=== PATIENT | male | born 1950 | race Caucasian/White ===

== ENCOUNTER 2016-12-03 12:02 | Inpatient (IN) | payer OTHER ==
[~2016-12-03] VITALS: Ht 172.7 cm; Wt 117.5 kg
[2016-12-03] MEDS ORDERED: SODIUM CHLORIDE FLUSH 10ML SYR IVF ONE (12:30)
[2016-12-03] MEDS ORDERED: CEFTRIAXONE PMX 1GM/50ML 50 ML IVPB ONE (12:30)
[2016-12-03] MEDS ORDERED: AZITHROMYCIN 500 MG in SODIUM CHLORIDE 0.9% 250 ML IVPB ONE (13:00)
[2016-12-03] MEDS ORDERED: METH40TA3 PO (13:16)
[2016-12-03] MEDS ORDERED: CEFTRIAXONE PMX 1GM/50ML 50 ML ONE (14:05)
[2016-12-03 14:07] LABS: ASPARTATE AMINO TRANSFERASE 60 U/L (15-37); BLOOD UREA NITROGEN 13 mg/dL (7-18)
[2016-12-03 14:40] LABS: HEMATOCRIT 38.8 % (39.2-51.8); HEMOGLOBIN 12.7 g/dL (13.7-18.0); WHITE BLOOD COUNT 4.7 x10^3/uL (3.4-10)
[2016-12-03] MEDS ORDERED: SODIUM CHLORIDE FLUSH 10ML SYR IVF PRN (15:00)
[2016-12-03 16:14] VITALS: BP 128/82
[2016-12-03] MEDS ORDERED: VANCOMYCIN PER PHARMACY MC PRN (19:30)
[2016-12-03] MEDS ORDERED: POLYETHYLENE GLYCOL 17 GM PACKET PO PRN (19:30)
[2016-12-03] MEDS: FUROSEMIDE 20 MG/2 ML IV SCH (19:30)
[2016-12-03] MEDS ORDERED: VANCOMYCIN PMX 1GM/200ML 200 ML IV ONE (19:30)
[2016-12-03] MEDS ORDERED: MORPHINE SULFATE 4 MG/ML, 1ML IVPush PRN (19:30)
[2016-12-03] MEDS ORDERED: BISACODYL 10 MG SUPP PR PRN (19:30)
[2016-12-03] MEDS ORDERED: ENALAPRILAT 1.25 MG/ML, 2ML IVPush PRN (19:30)
[2016-12-03] MEDS ORDERED: ONDANSETRON 2MG/ML, 2ML IVPush PRN (19:30)
[2016-12-03] MEDS ORDERED: hydrALAzine 20 MG/ML, 1ML IVPush PRN (19:30)
[2016-12-03 19:58] VITALS: BP 125/73
[2016-12-03] MEDS ORDERED: METHADONE 40 MG TABLET.SOL PO SCH (20:00)
[2016-12-03] MEDS ORDERED: PHARMACOKINETIC CONSULTATION MC ONE (20:30)
[2016-12-03] MEDS ORDERED: PHARMACOKINETIC MONITORING MC PRN (20:30)
[2016-12-03] MEDS ORDERED: METHADONE MC SCH (21:00)
[2016-12-03] MEDS: METHADONE 40 MG TABLET.SOL PO SCH (21:45)
[2016-12-03] MEDS: ENOXAPARIN 40 MG/0.4 ML SQ SCH (21:45)
[2016-12-03] MEDS: PIPERACILLIN/TAZO/PMX 3.375GM 50 ML IV SCH (21:45)
[2016-12-03] MEDS: VANCOMYCIN 1,700 MG in SODIUM CHLORIDE 0.9% 250 ML IV SCH (22:35)
[2016-12-04] MEDS: DIPHENHYDRAMINE 50 MG/ML, 1ML IVPush PRN ×2 (00:33→20:59)
[2016-12-04] MEDS: PIPERACILLIN/TAZO/PMX 3.375GM 50 ML IV SCH ×4 (01:59→20:59)
[2016-12-04 04:05] VITALS: BP 150/80
[2016-12-04 05:36] LABS: HEMATOCRIT 36.7 % (39.2-51.8); HEMOGLOBIN 12.3 g/dL (13.7-18.0); WHITE BLOOD COUNT 3.9 x10^3/uL (3.4-10)
[2016-12-04 05:50] LABS: ASPARTATE AMINO TRANSFERASE 62 U/L (15-37); BLOOD UREA NITROGEN 10 mg/dL (7-18)
[2016-12-04 05:56] LABS: DIFF TOTAL CELLS COUNTED 100 CELL DIFF
[2016-12-04 05:59] LABS: VERIFY COUNTS? YES
[2016-12-04] MEDS: FUROSEMIDE 20 MG/2 ML IV SCH (06:27)
[2016-12-04 07:10] VITALS: BP 142/89
[2016-12-04] MEDS ORDERED: METHADONE 40 MG TABLET.SOL PO SCH (09:00)
[2016-12-04] MEDS: SENNA/DOCUSATE TABLET PO SCH (09:00)
[2016-12-04] MEDS: METHADONE 40 MG TABLET.SOL PO SCH (10:07)
[2016-12-04] MEDS: VANCOMYCIN 1,700 MG in SODIUM CHLORIDE 0.9% 250 ML IV SCH (12:12)
[2016-12-04 13:42] VITALS: BP 124/74
[2016-12-04 18:49] VITALS: BP 105/65
[2016-12-04] MEDS: ENOXAPARIN 40 MG/0.4 ML SQ SCH (21:00)
[2016-12-04] MEDS ORDERED: TEMAZEPAM 15 MG CAPSULE PO PRN (23:00)
[2016-12-05] MEDS: VANCOMYCIN 1,700 MG in SODIUM CHLORIDE 0.9% 250 ML IV SCH ×3 (00:12→22:26)
[2016-12-05 02:00] VITALS: BP 120/80
[2016-12-05] MEDS: PIPERACILLIN/TAZO/PMX 3.375GM 50 ML IV SCH ×4 (03:14→21:26)
[2016-12-05 05:44] LABS: BLOOD UREA NITROGEN 12 mg/dL (7-18)
[2016-12-05 07:20] VITALS: BP 111/75
[2016-12-05] MEDS: METHADONE 40 MG TABLET.SOL PO SCH (09:00)
[2016-12-05] MEDS: FUROSEMIDE 20 MG/2 ML IV SCH (09:30)
[2016-12-05] MEDS: SENNA/DOCUSATE TABLET PO SCH (09:30)
[2016-12-05] MEDS: DIPHENHYDRAMINE 50 MG/ML, 1ML IVPush PRN ×2 (09:31→20:25)
[2016-12-05 12:50] VITALS: BP 114/77
[2016-12-05] MEDS: OXYcodone IR 5MG TABLET PO PRN ×2 (15:28→20:32)
[2016-12-05] MEDS ORDERED: FUROSEMIDE 20 MG/2 ML IV ONE (19:00)
[2016-12-05 20:00] VITALS: BP 118/78
[2016-12-05] MEDS: ENOXAPARIN 40 MG/0.4 ML SQ SCH (22:24)
[2016-12-06 01:55] VITALS: BP 118/78
[2016-12-06 01:59] VITALS: BP 125/80
[2016-12-06] MEDS: OXYcodone IR 5MG TABLET PO PRN ×3 (03:25→22:11)
[2016-12-06] MEDS: PIPERACILLIN/TAZO/PMX 3.375GM 50 ML IV SCH ×4 (03:25→22:01)
[2016-12-06 05:13] LABS: BLOOD UREA NITROGEN 13 mg/dL (7-18)
[2016-12-06 07:32] VITALS: BP 107/68
[2016-12-06] MEDS: METHADONE 40 MG TABLET.SOL PO SCH (08:15)
[2016-12-06] MEDS: SENNA/DOCUSATE TABLET PO SCH (08:16)
[2016-12-06] MEDS: FUROSEMIDE 20 MG/2 ML IV SCH (08:16)
[2016-12-06 15:21] VITALS: BP 115/73
[2016-12-06] MEDS: VANCOMYCIN 1,700 MG in SODIUM CHLORIDE 0.9% 250 ML IV SCH (17:47)
[2016-12-06] MEDS: DIPHENHYDRAMINE 50 MG/ML, 1ML IVPush PRN (17:52)
[2016-12-06 20:00] VITALS: BP 124/78
[2016-12-06] MEDS: ENOXAPARIN 40 MG/0.4 ML SQ SCH (22:01)
[2016-12-07 01:28] VITALS: BP 113/79
[2016-12-07] MEDS: DIPHENHYDRAMINE 50 MG/ML, 1ML IVPush PRN ×3 (01:40→22:08)
[2016-12-07] MEDS: PIPERACILLIN/TAZO/PMX 3.375GM 50 ML IV SCH ×4 (04:16→20:52)
[2016-12-07 05:16] LABS: BLOOD UREA NITROGEN 15 mg/dL (7-18)
[2016-12-07] MEDS: OXYcodone IR 5MG TABLET PO PRN ×3 (05:44→20:52)
[2016-12-07 08:43] VITALS: BP 115/76
[2016-12-07] MEDS: SENNA/DOCUSATE TABLET PO SCH (09:00)
[2016-12-07] MEDS: METHADONE 40 MG TABLET.SOL PO SCH (09:41)
[2016-12-07] MEDS: FUROSEMIDE 20 MG/2 ML IV SCH (10:35)
[2016-12-07] MEDS: VANCOMYCIN 1,700 MG in SODIUM CHLORIDE 0.9% 250 ML IV SCH (12:52)
[2016-12-07 14:04] VITALS: BP 115/74
[2016-12-07 20:42] VITALS: BP 115/74
[2016-12-07] MEDS: ENOXAPARIN 40 MG/0.4 ML SQ SCH (20:52)
[2016-12-08 02:30] VITALS: BP 118/70
[2016-12-08] MEDS: OXYcodone IR 5MG TABLET PO PRN ×4 (04:15→22:54)
[2016-12-08] MEDS: DIPHENHYDRAMINE 50 MG/ML, 1ML IVPush PRN ×2 (04:15→22:54)
[2016-12-08] MEDS: PIPERACILLIN/TAZO/PMX 3.375GM 50 ML IV SCH ×3 (04:16→19:52)
[2016-12-08 05:44] LABS: BLOOD UREA NITROGEN 12 mg/dL (7-18)
[2016-12-08] MEDS: VANCOMYCIN 1,700 MG in SODIUM CHLORIDE 0.9% 250 ML IV SCH (08:19)
[2016-12-08] MEDS: METHADONE 40 MG TABLET.SOL PO SCH (08:20)
[2016-12-08] MEDS: SENNA/DOCUSATE TABLET PO SCH (08:20)
[2016-12-08] MEDS: FUROSEMIDE 20 MG/2 ML IV SCH (08:20)
[2016-12-08 08:21] VITALS: BP 122/75
[2016-12-08 13:52] VITALS: BP 110/70
[2016-12-08] MEDS ORDERED: AMOX1TAB64 PO (14:21)
[2016-12-08] MEDS ORDERED: POLY17PO5 PO (14:21)
[2016-12-08] MEDS ORDERED: FURO-93 PO (14:21)
[2016-12-08 20:02] VITALS: BP 128/83
[2016-12-08] MEDS: ENOXAPARIN 40 MG/0.4 ML SQ SCH (22:54)
[2016-12-09] MEDS: PIPERACILLIN/TAZO/PMX 3.375GM 50 ML IV SCH ×3 (00:32→13:07)
[2016-12-09 00:36] VITALS: BP 116/73
[2016-12-09 01:56] VITALS: BP 114/72
[2016-12-09] MEDS: VANCOMYCIN 1,700 MG in SODIUM CHLORIDE 0.9% 250 ML IV SCH (02:05)
[2016-12-09] MEDS: SENNA/DOCUSATE TABLET PO SCH (07:43)
[2016-12-09] MEDS: METHADONE 40 MG TABLET.SOL PO SCH (07:43)
[2016-12-09] MEDS: FUROSEMIDE 20 MG/2 ML IV SCH (07:43)
[2016-12-09] MEDS: DIPHENHYDRAMINE 50 MG/ML, 1ML IVPush PRN (07:55)
[2016-12-09 07:58] VITALS: BP 120/74
[2016-12-09 13:38] VITALS: BP 104/51
[2016-12-09] MEDS: OXYcodone IR 5MG TABLET PO PRN (14:08)
[2016-12-09] MEDS ORDERED: VANCOMYCIN 1,500 MG in SODIUM CHLORIDE 0.9% 250 ML IV SCH (21:00)
== END 2016-12-09 16:22 | disposition home health service (06) | DRG 602 ==
LOC: ED 14:56 → EDIP 14:57 → ED 15:07 → 3NE 16:02
PROVIDERS: ADMIT Internal Medicine; ATTEND Internal Medicine
DX: L03.115 Cellulitis of right lower limb (principal); J18.0 Bronchopneumonia, unspecified organism; E44.0 Moderate protein-calorie malnutrition; J96.11 Chronic respiratory failure with hypoxia; I50.9 Heart failure, unspecified; J44.0 Chronic obstructive pulmonary disease with (acute) lower respiratory infection; K76.0 Fatty (change of) liver, not elsewhere classified; E66.01 Morbid (severe) obesity due to excess calories; L03.116 Cellulitis of left lower limb; D64.9 Anemia, unspecified; B19.20 Unspecified viral hepatitis C without hepatic coma; G89.29 Other chronic pain; K80.20 Calculus of gallbladder without cholecystitis without obstruction; Z87.891 Personal history of nicotine dependence; Z95.0 Presence of cardiac pacemaker; Z99.81 Dependence on supplemental oxygen; Z68.39 Body mass index [BMI] 39.0-39.9, adult
CPT/HCPCS: 36415; 71020; 76700; 80048; 80053; 80061; 80202; 81003; 83036; 83605; 83735; 83880; 84439; 84443; 85025; 85610; 85730; 87040; 87070; 87077; 87186; 87205; 93005; 93306; 93922; 93970; 96365; 96368; J0456; J0696; J1650; J2543; J3370; 29580-50; J1200; J1940; J7050

== ENCOUNTER 2017-04-01 22:14 | Emergency (ER) | payer OTHER ==
[~2017-04-01] VITALS: Ht 172.7 cm; Wt 126.1 kg
[~2017-04-01 22:14] MED LIST: AMOX1TAB64 PO; FURO-93 PO; METH40TA3 PO; POLY17PO5 PO
[2017-04-01] MEDS ORDERED: HYDROcodone/APAP 5/325 TABLET ONE (23:26)
[2017-04-01] MEDS ORDERED: AMPICILLIN/SULBACTAM 3 GM in SODIUM CHLORIDE 0.9% 100 ML IV ONE (23:30)
[2017-04-01] MEDS ORDERED: SODIUM CHLORIDE FLUSH 10ML SYR IVF ONE (23:30)
[2017-04-01] MEDS ORDERED: HYDROcodone/APAP 5/325 TABLET PO ONE (23:30)
[2017-04-01 23:47] LABS: BASOPHILS # (AUTO) 0.04 x10^3/uL (0-0.1); BASOPHILS % (AUTO) 1 % (0-1); EOSINOPHILS # (AUTO) 0.17 x10^3/uL (0-0.4); EOSINOPHILS % (AUTO) 3 % (1-7); LYMPHOCYTES # (AUTO) 1.19 x10^3/uL (1-3.4); LYMPHOCYTES % (AUTO) 18 % (22-44); MD NO; MEAN CORPUSCULAR HGB CONC 33.4 g/dL (33.2-36.2); MEAN CORPUSCULAR VOLUME 92.8 fL (81-97); MEAN PLATELET VOLUME 7.9 fL (7.4-10.4); MONOCYTES % (AUTO) 18 % (2-9); NEUTROPHILS # (AUTO) 4.12 x10^3/uL (1.8-6.8); NEUTROPHILS % (AUTO) 61 % (42-75); PLATELET COUNT 164 x10^3/uL (130-400); RED BLOOD COUNT 4.05 x10^6/uL (4.38-5.82)
[2017-04-02] LABS: ALANINE AMINOTRANSFERASE 70 U/L (12-78); ALBUMIN 3.3 g/dL (3.4-5.0); ANION GAP 9 mmol/L (5-15); CALCIUM 8.3 mg/dL (8.5-10.1); CHLORIDE 100 mmol/L (98-107)
[2017-04-02 00:08] LABS: ALKALINE PHOSPHATASE 94 U/L (45-117); BILIRUBIN,TOTAL 0.6 mg/dL (0.2-1.0); CREATININE 0.99 mg/dL (0.7-1.3); TOTAL PROTEIN 7.4 g/dL (6.4-8.2)
[2017-04-02] MEDS ORDERED: KETOROLAC 30 MG/1 ML ONE (00:37)
[2017-04-02] MEDS ORDERED: KETOROLAC 30 MG/1 ML IVPush ONE (01:00)
[2017-04-02 01:04] VITALS: BP 135/61
== END 2017-04-02 01:10 | disposition left against medical advice (07) ==
LOC: ED 23:41
DX: L97.929 Non-pressure chronic ulcer of unspecified part of left lower leg with unspecified severity (principal); L03.116 Cellulitis of left lower limb; J44.9 Chronic obstructive pulmonary disease, unspecified; Z87.891 Personal history of nicotine dependence; Z95.0 Presence of cardiac pacemaker
CPT/HCPCS: 36415; 80053; 83605; 84145; 85025; 87040; 93971; 96365; 99285; J0295

== ENCOUNTER 2017-06-08 20:15 | Inpatient (IN) | payer OTHER ==
[~2017-06-08] VITALS: Ht 177.8 cm; Wt 123.0 kg
[2017-06-08] MEDS ORDERED: SODIUM CHLORIDE FLUSH 10ML SYR IVF ONE (20:30)
[2017-06-08] MEDS ORDERED: CEFAZOLIN PMX 1GM/50ML 50 ML IV ONE (20:30)
[2017-06-08] MEDS ORDERED: CEFAZOLIN PMX 1GM/50ML 50 ML ONE (21:18)
[2017-06-08 21:26] LABS: BASOPHILS # (AUTO) 0.02 x10^3/uL (0-0.1); BASOPHILS % (AUTO) 0 % (0-1); EOSINOPHILS # (AUTO) 0.05 x10^3/uL (0-0.4); EOSINOPHILS % (AUTO) 1 % (1-7); LYMPHOCYTES # (AUTO) 0.77 x10^3/uL (1-3.4); LYMPHOCYTES % (AUTO) 17 % (22-44); MD NO; MEAN CORPUSCULAR HEMOGLOBIN 32.3 pg (27.5-34.5); MEAN CORPUSCULAR HGB CONC 33.6 g/dL (33.2-36.2); MEAN CORPUSCULAR VOLUME 96.1 fL (81-97); MEAN PLATELET VOLUME 8.1 fL (7.4-10.4); MONOCYTES # (AUTO) 0.61 x10^3/uL (0.2-0.8); MONOCYTES % (AUTO) 13 % (2-9); NEUTROPHILS # (AUTO) 3.07 x10^3/uL (1.8-6.8); NEUTROPHILS % (AUTO) 68 % (42-75); PLATELET COUNT 112 x10^3/uL (130-400); RED BLOOD COUNT 4.38 x10^6/uL (4.38-5.82); RED CELL DISTRIBUTION WIDTH 17.2 % (9.4-14.8)
[2017-06-08 21:35] LABS: INTERNATIONAL NORMALIZED RATIO 1.14 (0.93-1.1); PROTHROMBIN TIME 11.7 Seconds (9.6-11.5)
[2017-06-08 21:38] LABS: ALANINE AMINOTRANSFERASE 119 U/L (12-78); ALBUMIN 3.6 g/dL (3.4-5.0); ANION GAP 9 mmol/L (5-15); CALCIUM 8.6 mg/dL (8.5-10.1); CHLORIDE 96 mmol/L (98-107); CREATININE 0.84 mg/dL (0.7-1.3)
[2017-06-08 21:43] LABS: ALKALINE PHOSPHATASE 97 U/L (45-117); TOTAL PROTEIN 8.1 g/dL (6.4-8.2); TROPONIN I < 0.015 ng/mL (0.000-0.045)
[2017-06-08] MEDS ORDERED: FUROSEMIDE 40 MG/4 ML IV ONE (23:00)
[2017-06-08] MEDS ORDERED: FUROSEMIDE 40 MG/4 ML ONE (23:24)
[2017-06-09] MEDS ORDERED: ACETAMINOPHEN 325 MG TABLET PO PRN
[2017-06-09] MEDS ORDERED: hydrALAzine 20 MG/ML, 1ML IVPush PRN
[2017-06-09] MEDS ORDERED: DOCUSATE 100 MG CAPSULE PO PRN
[2017-06-09 00:45] VITALS: BP 153/88
[2017-06-09] MEDS: ENOXAPARIN 40 MG/0.4 ML SQ SCH ×2 (01:07→23:08)
[2017-06-09] MEDS ORDERED: OMNIPAQUE 350 MG/ML, 100ML BOTTLE ONE (03:21)
[2017-06-09 03:41] VITALS: BP 148/88
[2017-06-09] MEDS ORDERED: CEFAZOLIN 1,000 MG IVPB SCH (04:30)
[2017-06-09] MEDS ORDERED: CEFAZOLIN 1,000 MG IM SCH (04:30)
[2017-06-09] MEDS: CEFAZOLIN PMX 1GM/50ML 50 ML IV SCH ×3 (06:15→23:07)
[2017-06-09 07:05] VITALS: BP 149/84
[2017-06-09] MEDS ORDERED: METHADONE INTENSOL 10 MG/ML ORAL CONC PO SCH ×2 (09:00→10:30)
[2017-06-09 13:12] VITALS: BP 156/94
[2017-06-09] MEDS: ONDANSETRON 4 MG TABLET PO PRN (13:58)
[2017-06-09] MEDS ORDERED: PROMETHAZINE 25 MG/ML, 1ML IM PRN (14:00)
[2017-06-09] MEDS ORDERED: D5%-LACTATED RINGERS 1,000 ML IV SCH (17:00)
[2017-06-09 19:39] VITALS: BP 133/89
[2017-06-09] MEDS: TEMAZEPAM 15 MG CAPSULE PO PRN (23:08)
[2017-06-10 01:36] VITALS: BP 155/93
[2017-06-10] MEDS: CEFAZOLIN PMX 1GM/50ML 50 ML IV SCH ×3 (06:38→22:02)
[2017-06-10 07:15] VITALS: BP 134/81
[2017-06-10 07:20] LABS: ALANINE AMINOTRANSFERASE 82 U/L (12-78); ALBUMIN 3.3 g/dL (3.4-5.0); ANION GAP 5 mmol/L (5-15); CALCIUM 8.1 mg/dL (8.5-10.1); CHLORIDE 96 mmol/L (98-107); CREATININE 0.99 mg/dL (0.7-1.3)
[2017-06-10 07:22] LABS: ALKALINE PHOSPHATASE 85 U/L (45-117); BILIRUBIN,TOTAL 1.3 mg/dL (0.2-1.0); TOTAL PROTEIN 7.5 g/dL (6.4-8.2)
[2017-06-10] MEDS: METHADONE 10 MG TABLET PO SCH (09:00)
[2017-06-10] MEDS ORDERED: SINCALIDE (KINEVAC) 5 MCG ONE (14:42)
[2017-06-10] MEDS: ONDANSETRON 4 MG TABLET PO PRN (15:36)
[2017-06-10] MEDS ORDERED: CEFOTETAN PMX 2GM/50ML 50 ML IVPB ONE (17:00)
[2017-06-10 19:32] VITALS: BP 115/74
[2017-06-10] MEDS: TEMAZEPAM 15 MG CAPSULE PO PRN (22:02)
[2017-06-10] MEDS: ENOXAPARIN 40 MG/0.4 ML SQ SCH (23:28)
[2017-06-11 01:09] VITALS: BP 149/88
[2017-06-11] MEDS: CEFAZOLIN PMX 1GM/50ML 50 ML IV SCH ×3 (05:48→22:19)
[2017-06-11] MEDS ORDERED: MIDAZOLAM 1 MG/ML, 2ML ONE (06:44)
[2017-06-11 06:45] VITALS: BP 146/86
[2017-06-11] MEDS ORDERED: FENTANYL PF 250 MCG/5ML ONE (06:45)
[2017-06-11] MEDS ORDERED: PROPOFOL 10 MG/ML, 20ML ONE (06:46)
[2017-06-11] MEDS ORDERED: ROCURONIUM 10MG/ML,5ML ONE (06:47)
[2017-06-11] MEDS ORDERED: NEOSTIGMINE 1 MG/ML, 10ML ONE (06:49)
[2017-06-11] MEDS ORDERED: BUPIVACAINE/PF 0.5% ONE (07:05)
[2017-06-11] MEDS ORDERED: GLYCOPYRROLATE 0.2MG/1ML, 5ML ONE (07:23)
[2017-06-11] MEDS ORDERED: PHENYLEPHRINE 10 MG/ML ONE (07:23)
[2017-06-11] MEDS ORDERED: CEFOTETAN PMX 2GM/50ML 50 ML IVPB ONE (07:23)
[2017-06-11] MEDS ORDERED: PROMETHAZINE 25 MG/ML, 1ML IV PRN (07:30)
[2017-06-11] MEDS ORDERED: hydrALAzine 20 MG/ML, 1ML IV PRN (07:30)
[2017-06-11] MEDS ORDERED: HYDROmorphone 1 MG/ML, 1ML IV PRN (07:30)
[2017-06-11] MEDS ORDERED: ONDANSETRON 2MG/ML, 2ML IVPush PRN (07:30)
[2017-06-11] MEDS ORDERED: morphine SULFATE 10 MG/ML, 1ML IV PRN (07:30)
[2017-06-11] MEDS ORDERED: OXYcodone 5 MG/5 ML ORAL.SOL UDC PO PRN (07:30)
[2017-06-11] MEDS ORDERED: LABETALOL 5MG/ML, 20ML IV PRN (07:30)
[2017-06-11] MEDS ORDERED: PROMETHAZINE 12.5 MG SUPP PR PRN (07:30)
[2017-06-11] MEDS ORDERED: FENTANYL PF 100 MCG/2ML IV PRN (07:30)
[2017-06-11] MEDS ORDERED: BUPIVACAINE/PF 0.5% INJ ONE (07:53)
[2017-06-11] MEDS ORDERED: CEFOTETAN PMX 2GM/50ML 50 ML IV ONE (08:00)
[2017-06-11] MEDS ORDERED: MEPERIDINE/PF 25MG/0.5ML ONE (09:10)
[2017-06-11] MEDS: MEPERIDINE/PF 25MG/0.5ML IVPush PRN ×2 (09:12→09:27)
[2017-06-11] MEDS: METHADONE 10 MG TABLET PO SCH (10:14)
[2017-06-11] MEDS ORDERED: KETOROLAC 30 MG/1 ML IVPush PRN (12:00)
[2017-06-11 14:25] VITALS: BP 113/69
[2017-06-11 20:12] VITALS: BP 123/74
[2017-06-11] MEDS: TEMAZEPAM 15 MG CAPSULE PO PRN (22:19)
[2017-06-11] MEDS: ENOXAPARIN 40 MG/0.4 ML SQ SCH (23:41)
[2017-06-12 03:16] VITALS: BP 124/74
[2017-06-12] MEDS: CEFAZOLIN PMX 1GM/50ML 50 ML IV SCH ×2 (06:17→14:24)
[2017-06-12 08:15] VITALS: BP 128/80
[2017-06-12] MEDS: METHADONE 10 MG TABLET PO SCH (08:38)
[2017-06-12 08:46] LABS: MEAN CORPUSCULAR HEMOGLOBIN 31.9 pg (27.5-34.5); MEAN CORPUSCULAR HGB CONC 33.2 g/dL (33.2-36.2); MEAN PLATELET VOLUME 7.8 fL (7.4-10.4); PLATELET COUNT 91 x10^3/uL (130-400); RED BLOOD COUNT 4.12 x10^6/uL (4.38-5.82); RED CELL DISTRIBUTION WIDTH 17.8 % (9.4-14.8)
[2017-06-12 08:51] LABS: ALANINE AMINOTRANSFERASE 68 U/L (12-78); ALBUMIN 2.9 g/dL (3.4-5.0); ANION GAP 5 mmol/L (5-15); CALCIUM 7.9 mg/dL (8.5-10.1); CHLORIDE 98 mmol/L (98-107); CREATININE 0.91 mg/dL (0.7-1.3)
[2017-06-12 08:53] LABS: ALKALINE PHOSPHATASE 70 U/L (45-117); BILIRUBIN,TOTAL 1.2 mg/dL (0.2-1.0); TOTAL PROTEIN 6.8 g/dL (6.4-8.2)
[2017-06-12 09:41] LABS: BASOPHILS # (AUTO) 0.03 x10^3/uL (0-0.1); BASOPHILS % (AUTO) 1 % (0-1); EOSINOPHILS # (AUTO) 0.21 x10^3/uL (0-0.4); EOSINOPHILS % (AUTO) 5 % (1-7); LYMPHOCYTES # (AUTO) 0.84 x10^3/uL (1-3.4); LYMPHOCYTES % (AUTO) 19 % (22-44); MD SCAN; MONOCYTES # (AUTO) 0.66 x10^3/uL (0.2-0.8); MONOCYTES % (AUTO) 15 % (2-9); NEUTROPHILS # (AUTO) 2.68 x10^3/uL (1.8-6.8); NEUTROPHILS % (AUTO) 61 % (42-75)
[2017-06-12] MEDS ORDERED: POTASSIUM CHLORIDE 20 MEQ TAB.ER.PRT PO ONE (12:30)
[2017-06-12] MEDS ORDERED: ACET-1757 PO (12:36)
== END 2017-06-12 15:00 | disposition home health service (06) | DRG 418 ==
LOC: ED 22:40 → EDIP 23:40 → 4WST 06-09 00:12
PROVIDERS: ADMIT Hospitalist; ATTEND Hospitalist
PROC: 0FT44ZZ Resection of Gallbladder, Percutaneous Endoscopic Approach (ICD-10-PCS; principal; 2017-06-08)
DX: K80.66 Calculus of gallbladder and bile duct with acute and chronic cholecystitis without obstruction (principal); L03.115 Cellulitis of right lower limb; J96.10 Chronic respiratory failure, unspecified whether with hypoxia or hypercapnia; Z99.81 Dependence on supplemental oxygen; B19.10 Unspecified viral hepatitis B without hepatic coma; L03.116 Cellulitis of left lower limb; J98.11 Atelectasis; K76.0 Fatty (change of) liver, not elsewhere classified; B19.20 Unspecified viral hepatitis C without hepatic coma; E66.9 Obesity, unspecified; F11.90 Opioid use, unspecified, uncomplicated; I51.7 Cardiomegaly; I87.8 Other specified disorders of veins; J44.9 Chronic obstructive pulmonary disease, unspecified; G89.29 Other chronic pain; M54.5 Low back pain; Z68.38 Body mass index [BMI] 38.0-38.9, adult; Z87.891 Personal history of nicotine dependence; Z90.49 Acquired absence of other specified parts of digestive tract; Z95.0 Presence of cardiac pacemaker
CPT/HCPCS: 36415; 71045; 71275; 74018; 76705; 78227; 80053; 83690; 83880; 84484; 85025; 85379; 85610; 85730; 86704; 86706; 86708; 86803; 87040; 87340; 88304; 93005; 93970; 96365; 96375; J0690; J1650; J1940; J2175; J2250; J2704; J2710; J3010; J3490; Q0162; Q9967; A9537; C9898; J2370; J2805; S0074

== ENCOUNTER 2017-06-24 16:24 | Inpatient (IN) | payer OTHER ==
[~2017-06-24] VITALS: Ht 175.3 cm; Wt 122.6 kg
[~2017-06-24 16:24] MED LIST changes: +ACET-1757 PO
[2017-06-24] MEDS: ALBUTEROL/IPRATROPIUM 2.5MG/0.5MG, 3 ML NPPB SCH ×3 (17:12→22:23)
[2017-06-24] MEDS ORDERED: ALBUTEROL/IPRATROPIUM 2.5MG/0.5MG, 3 ML ONE ×2 (17:12→17:20)
[2017-06-24 17:37] LABS: BASOPHILS # (AUTO) 0.02 x10^3/uL (0-0.1); BASOPHILS % (AUTO) 0 % (0-1); EOSINOPHILS # (AUTO) 0.26 x10^3/uL (0-0.4); EOSINOPHILS % (AUTO) 4 % (1-7); LYMPHOCYTES # (AUTO) 1.12 x10^3/uL (1-3.4); LYMPHOCYTES % (AUTO) 19 % (22-44); MD NO; MEAN CORPUSCULAR HEMOGLOBIN 32.6 pg (27.5-34.5); MEAN CORPUSCULAR HGB CONC 33.6 g/dL (33.2-36.2); MEAN CORPUSCULAR VOLUME 96.9 fL (81-97); MEAN PLATELET VOLUME 7.7 fL (7.4-10.4); MONOCYTES # (AUTO) 0.82 x10^3/uL (0.2-0.8); MONOCYTES % (AUTO) 14 % (2-9); NEUTROPHILS # (AUTO) 3.77 x10^3/uL (1.8-6.8); NEUTROPHILS % (AUTO) 63 % (42-75); PLATELET COUNT 191 x10^3/uL (130-400); RED BLOOD COUNT 4.14 x10^6/uL (4.38-5.82); RED CELL DISTRIBUTION WIDTH 17.2 % (9.4-14.8)
[2017-06-24 17:43] LABS: ALANINE AMINOTRANSFERASE 90 U/L (12-78); ALBUMIN 3.2 g/dL (3.4-5.0); ANION GAP 7 mmol/L (5-15); CALCIUM 8.1 mg/dL (8.5-10.1); CHLORIDE 102 mmol/L (98-107); CREATININE 0.86 mg/dL (0.7-1.3)
[2017-06-24 17:48] LABS: ALKALINE PHOSPHATASE 98 U/L (45-117); BILIRUBIN,TOTAL 0.8 mg/dL (0.2-1.0); TOTAL PROTEIN 7.3 g/dL (6.4-8.2); TROPONIN I < 0.015 ng/mL (0.000-0.045)
[2017-06-24] MEDS ORDERED: PIPERACILLIN/TAZO/PMX 3.375GM 50 ML IV ONE (18:00)
[2017-06-24] MEDS ORDERED: PIPERACILLIN/TAZO/PMX 3.375GM 50 ML ONE ×2 (18:13→18:33)
[2017-06-24] MEDS ORDERED: POLYETHYLENE GLYCOL 17 GM PACKET PO PRN (19:00)
[2017-06-24] MEDS ORDERED: ONDANSETRON 2MG/ML, 2ML IVPush PRN (19:00)
[2017-06-24] MEDS ORDERED: ONDANSETRON ODT 4 MG PO PRN (19:00)
[2017-06-24] MEDS ORDERED: LABETALOL 5MG/ML, 20ML IVPush PRN (19:00)
[2017-06-24] MEDS ORDERED: VANCOMYCIN PER PHARMACY MC PRN (19:00)
[2017-06-24 19:15] LABS: FREE T4 (FREE THYROXINE) 0.95 ng/dL (0.76-1.46)
[2017-06-24] MEDS ORDERED: PHARMACOKINETIC CONSULTATION MC ONE (20:00)
[2017-06-24] MEDS ORDERED: PHARMACOKINETIC MONITORING MC PRN (20:00)
[2017-06-24 20:45] VITALS: BP 136/70
[2017-06-24] MEDS: ACETAMINOPHEN 325 MG TABLET PO PRN (20:57)
[2017-06-24] MEDS: VANCOMYCIN 1,800 MG in SODIUM CHLORIDE 0.9% 250 ML IV SCH (20:57)
[2017-06-24] MEDS: GUAIFENESIN 200 MG TABLET PO SCH (20:57)
[2017-06-24] MEDS: ENOXAPARIN 40 MG/0.4 ML SQ SCH (21:11)
[2017-06-24 22:00] VITALS: BP 136/70
[2017-06-24] MEDS ORDERED: ALBUTEROL/IPRATROPIUM 2.5MG/0.5MG, 3 ML NPPB PRN (22:00)
[2017-06-25] MEDS: ALBUTEROL/IPRATROPIUM 2.5MG/0.5MG, 3 ML NPPB SCH ×5 (00:02→20:00)
[2017-06-25] MEDS: ACETAMINOPHEN 325 MG TABLET PO PRN ×2 (01:12→19:54)
[2017-06-25] MEDS: PIPERACILLIN/TAZO/PMX 3.375GM 50 ML IV SCH ×4 (01:12→19:54)
[2017-06-25 02:00] VITALS: BP 137/81
[2017-06-25 06:08] LABS: BASOPHILS # (AUTO) 0.04 x10^3/uL (0-0.1); BASOPHILS % (AUTO) 1 % (0-1); EOSINOPHILS # (AUTO) 0.17 x10^3/uL (0-0.4); EOSINOPHILS % (AUTO) 3 % (1-7); LYMPHOCYTES # (AUTO) 0.82 x10^3/uL (1-3.4); LYMPHOCYTES % (AUTO) 16 % (22-44); MD NO; MEAN CORPUSCULAR HEMOGLOBIN 32.8 pg (27.5-34.5); MEAN CORPUSCULAR HGB CONC 33.8 g/dL (33.2-36.2); MEAN CORPUSCULAR VOLUME 96.9 fL (81-97); MEAN PLATELET VOLUME 7.7 fL (7.4-10.4); MONOCYTES # (AUTO) 0.77 x10^3/uL (0.2-0.8); MONOCYTES % (AUTO) 15 % (2-9); NEUTROPHILS # (AUTO) 3.33 x10^3/uL (1.8-6.8); NEUTROPHILS % (AUTO) 65 % (42-75); PLATELET COUNT 157 x10^3/uL (130-400); RED BLOOD COUNT 3.76 x10^6/uL (4.38-5.82); RED CELL DISTRIBUTION WIDTH 17.7 % (9.4-14.8)
[2017-06-25 06:22] LABS: ALBUMIN 2.9 g/dL (3.4-5.0); ANION GAP 5 mmol/L (5-15); CALCIUM 7.9 mg/dL (8.5-10.1); CHLORIDE 103 mmol/L (98-107)
[2017-06-25 06:32] LABS: ALANINE AMINOTRANSFERASE 76 U/L (12-78); ALKALINE PHOSPHATASE 83 U/L (45-117); BILIRUBIN,TOTAL 0.9 mg/dL (0.2-1.0); CHOLESTEROL, TOTAL 118 mg/dL (140-239); CREATININE 0.85 mg/dL (0.7-1.3); HDL CHOL % 33 % (26-37); HDL CHOLESTEROL (DIRECT) 39 mg/dL (40-60); LDL CHOLESTEROL,CALCULATED 58 mg/dL (54-169); LDL/HDL RATIO 1.5 (0.5-3.0); TOTAL PROTEIN 6.7 g/dL (6.4-8.2); TRIGLYCERIDES 107 mg/dL (50-200); VLDL CHOLESTEROL 21 mg/dL (0-25)
[2017-06-25] MEDS: GUAIFENESIN 200 MG TABLET PO SCH ×4 (06:33→20:59)
[2017-06-25] MEDS ORDERED: MAGNESIUM SULFATE PMX 2GM/50ML 50 ML IV ONE (07:30)
[2017-06-25 08:30] VITALS: BP 147/80
[2017-06-25 08:40] VITALS: BP 147/80
[2017-06-25] MEDS: SENNA/DOCUSATE TABLET PO SCH (09:00)
[2017-06-25] MEDS: FUROSEMIDE 20 MG/2 ML IV SCH (09:17)
[2017-06-25] MEDS: LEVOTHYROXINE 25 MCG TABLET PO SCH (09:18)
[2017-06-25] MEDS: METHADONE INTENSOL 10 MG/ML ORAL CONC PO SCH (10:14)
[2017-06-25 14:52] VITALS: BP 146/77
[2017-06-25] MEDS: VANCOMYCIN 1,800 MG in SODIUM CHLORIDE 0.9% 250 ML IV SCH (16:13)
[2017-06-25 20:00] VITALS: BP 129/73
[2017-06-25] MEDS: ENOXAPARIN 40 MG/0.4 ML SQ SCH (20:59)
[2017-06-25] MEDS: TEMAZEPAM 15 MG CAPSULE PO PRN (21:32)
[2017-06-26 02:00] VITALS: BP 123/71
[2017-06-26] MEDS: PIPERACILLIN/TAZO/PMX 3.375GM 50 ML IV SCH ×2 (02:22→08:16)
[2017-06-26 04:52] LABS: MEAN CORPUSCULAR HEMOGLOBIN 32.5 pg (27.5-34.5); MEAN CORPUSCULAR HGB CONC 33.4 g/dL (33.2-36.2); MEAN CORPUSCULAR VOLUME 97.5 fL (81-97); PLATELET COUNT 180 x10^3/uL (130-400); RED BLOOD COUNT 4.04 x10^6/uL (4.38-5.82); RED CELL DISTRIBUTION WIDTH 17.1 % (9.4-14.8)
[2017-06-26 04:59] LABS: ANION GAP 6 mmol/L (5-15); CALCIUM 8.5 mg/dL (8.5-10.1); CHLORIDE 104 mmol/L (98-107); CREATININE 0.84 mg/dL (0.7-1.3)
[2017-06-26 05:41] LABS: BASOPHILS # (AUTO) 0.02 x10^3/uL (0-0.1); BASOPHILS % (AUTO) 0 % (0-1); EOSINOPHILS # (AUTO) 0.03 x10^3/uL (0-0.4); EOSINOPHILS % (AUTO) 0 % (1-7); LYMPHOCYTES # (AUTO) 0.77 x10^3/uL (1-3.4); LYMPHOCYTES % (AUTO) 10 % (22-44); MD SCAN; MONOCYTES # (AUTO) 1.07 x10^3/uL (0.2-0.8); MONOCYTES % (AUTO) 13 % (2-9); NEUTROPHILS # (AUTO) 6.09 x10^3/uL (1.8-6.8); NEUTROPHILS % (AUTO) 76 % (42-75)
[2017-06-26] MEDS: LEVOTHYROXINE 25 MCG TABLET PO SCH (06:16)
[2017-06-26] MEDS: GUAIFENESIN 200 MG TABLET PO SCH ×4 (06:16→20:19)
[2017-06-26] MEDS: ALBUTEROL/IPRATROPIUM 2.5MG/0.5MG, 3 ML NPPB SCH ×5 (07:30→22:55)
[2017-06-26] MEDS: FUROSEMIDE 20 MG/2 ML IV SCH (08:16)
[2017-06-26] MEDS: SENNA/DOCUSATE TABLET PO SCH (08:17)
[2017-06-26] MEDS: METHADONE INTENSOL 10 MG/ML ORAL CONC PO SCH (08:17)
[2017-06-26 08:18] VITALS: BP 138/79
[2017-06-26] MEDS: VANCOMYCIN 1,800 MG in SODIUM CHLORIDE 0.9% 250 ML IV SCH (09:31)
[2017-06-26] MEDS: NEUTRA PHOS K 250 MG TABLET PO SCH ×3 (11:37→20:19)
[2017-06-26] MEDS ORDERED: CEFTRIAXONE PMX 2GM/50ML 50 ML IV SCH (13:00)
[2017-06-26] MEDS ORDERED: CEFTRIAXONE 2 GM in DEXTROSE 5% 50 ML IV SCH (14:00)
[2017-06-26 14:30] VITALS: BP 146/75
[2017-06-26 18:32] VITALS: BP 124/74
[2017-06-26] MEDS: ENOXAPARIN 40 MG/0.4 ML SQ SCH (20:19)
[2017-06-26] MEDS: DOXYCYCLINE 100MG TABLET PO SCH (20:19)
[2017-06-26] MEDS: TEMAZEPAM 15 MG CAPSULE PO PRN (20:27)
[2017-06-27 00:19] VITALS: BP 129/70
[2017-06-27 02:10] LABS: BASOPHILS # (AUTO) 0.02 x10^3/uL (0-0.1); BASOPHILS % (AUTO) 0 % (0-1); EOSINOPHILS # (AUTO) 0.04 x10^3/uL (0-0.4); EOSINOPHILS % (AUTO) 1 % (1-7); LYMPHOCYTES # (AUTO) 1.08 x10^3/uL (1-3.4); LYMPHOCYTES % (AUTO) 14 % (22-44); MD NO; MEAN CORPUSCULAR HEMOGLOBIN 31.8 pg (27.5-34.5); MEAN CORPUSCULAR VOLUME 96.5 fL (81-97); MEAN PLATELET VOLUME 7.8 fL (7.4-10.4); MONOCYTES # (AUTO) 1.21 x10^3/uL (0.2-0.8); MONOCYTES % (AUTO) 16 % (2-9); NEUTROPHILS # (AUTO) 5.45 x10^3/uL (1.8-6.8); NEUTROPHILS % (AUTO) 70 % (42-75); PLATELET COUNT 188 x10^3/uL (130-400); RED BLOOD COUNT 3.93 x10^6/uL (4.38-5.82); RED CELL DISTRIBUTION WIDTH 17.3 % (9.4-14.8)
[2017-06-27 02:20] LABS: ANION GAP 5 mmol/L (5-15); CALCIUM 8.6 mg/dL (8.5-10.1); CHLORIDE 106 mmol/L (98-107); CREATININE 0.91 mg/dL (0.7-1.3)
[2017-06-27] MEDS: VANCOMYCIN 1,800 MG in SODIUM CHLORIDE 0.9% 250 ML IV SCH (02:30)
[2017-06-27] MEDS: GUAIFENESIN 200 MG TABLET PO SCH ×2 (05:43→12:26)
[2017-06-27] MEDS: LEVOTHYROXINE 25 MCG TABLET PO SCH (05:45)
[2017-06-27 06:02] VITALS: BP 134/76
[2017-06-27] MEDS: ALBUTEROL/IPRATROPIUM 2.5MG/0.5MG, 3 ML NPPB SCH ×2 (07:40→11:50)
[2017-06-27] MEDS: DOXYCYCLINE 100MG TABLET PO SCH (08:41)
[2017-06-27] MEDS: SENNA/DOCUSATE TABLET PO SCH (08:41)
[2017-06-27] MEDS: NEUTRA PHOS K 250 MG TABLET PO SCH (08:41)
[2017-06-27] MEDS: FUROSEMIDE 20 MG/2 ML IV SCH ×2 (08:42→09:00)
[2017-06-27] MEDS: METHADONE INTENSOL 10 MG/ML ORAL CONC PO SCH (08:42)
[2017-06-27] MEDS ORDERED: LEVOFLOXACIN 750 MG TABLET PO SCH (10:30)
[2017-06-27] MEDS ORDERED: DOXY100T PO (12:09)
[2017-06-27] MEDS ORDERED: CEFD300C37 PO (12:09)
== END 2017-06-27 12:39 | disposition home or self-care (01) | DRG 177 ==
LOC: ED 18:27 → EDIP 18:51 → 3NE 19:42
PROVIDERS: ADMIT Internal Medicine; ATTEND Internal Medicine
DX: J15.6 Pneumonia due to other Gram-negative bacteria (principal); J96.01 Acute respiratory failure with hypoxia; E44.0 Moderate protein-calorie malnutrition; F11.20 Opioid dependence, uncomplicated; J44.0 Chronic obstructive pulmonary disease with (acute) lower respiratory infection; J44.1 Chronic obstructive pulmonary disease with (acute) exacerbation; D64.9 Anemia, unspecified; E66.9 Obesity, unspecified; G89.29 Other chronic pain; B19.20 Unspecified viral hepatitis C without hepatic coma; R00.1 Bradycardia, unspecified; R74.0 Nonspecific elevation of levels of transaminase and lactic acid dehydrogenase [LDH]; K76.0 Fatty (change of) liver, not elsewhere classified; Z99.81 Dependence on supplemental oxygen; Z68.39 Body mass index [BMI] 39.0-39.9, adult; Z87.891 Personal history of nicotine dependence; Z95.0 Presence of cardiac pacemaker; Z90.49 Acquired absence of other specified parts of digestive tract
CPT/HCPCS: 36415; 71045; 80048; 80053; 80061; 80202; 82040; 83605; 83690; 83735; 83880; 84100; 84145; 84439; 84443; 84484; 85025; 87040; 87070; 87077; 87186; 87205; 93005; 93308; 93321; 93325; 93922; 94640; 99285; J0696; J1650; J2543; J3370; J7620; J1940; J3475; J7050; J7512

== ENCOUNTER 2018-02-01 19:17 | Emergency (ER) | payer MEDICARE, OTHER ==
[~2018-02-01] VITALS: Ht 177.8 cm; Wt 110.3 kg
[~2018-02-01 19:17] MED LIST changes: +ALBU18HF INH; +AZIT250T PO; +CEFD300C37 PO; +DOXY100T PO; +PRED10TA PO; +TIOT18CA INH
[2018-02-01 19:23] VITALS: BP 166/90
[2018-02-01] MEDS ORDERED: IBUP-1623 PO (19:44)
[2018-02-01] MEDS ORDERED: OXYcodone/APAP 5/325MG TABLET PO ONE (20:00)
[2018-02-01] MEDS ORDERED: KETOROLAC 30 MG/1 ML IM ONE (20:00)
[2018-02-01] MEDS ORDERED: DIAZEPAM 5 MG TABLET PO ONE (20:00)
[2018-02-01] MEDS ORDERED: KETOROLAC 30 MG/1 ML ONE (20:00)
[2018-02-01] MEDS ORDERED: DIAZEPAM 5 MG TABLET ONE (20:01)
[2018-02-01] MEDS ORDERED: OXYcodone/APAP 5/325MG TABLET ONE (20:01)
== END 2018-02-01 20:39 | disposition home or self-care (01) ==
LOC: ED 20:05
DX: S39.012A Strain of muscle, fascia and tendon of lower back, initial encounter (principal); M46.1 Sacroiliitis, not elsewhere classified; M43.06 Spondylolysis, lumbar region; J44.9 Chronic obstructive pulmonary disease, unspecified; X58.XXXA Exposure to other specified factors, initial encounter; Y93.89 Activity, other specified; Y92.89 Other specified places as the place of occurrence of the external cause; Y99.8 Other external cause status
CPT/HCPCS: 72110; 93005; 96372; 99283; J1885

== ENCOUNTER 2018-07-19 12:04 | Emergency (ER) | payer MEDICARE ==
[~2018-07-19] VITALS: Ht 172.7 cm; Wt 104.8 kg
[~2018-07-19 12:04] MED LIST changes: +IBUP-1623 PO
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
[2018-07-19] MEDS ORDERED: ASPIRIN 81 MG TABLET CHEW PO ONE (12:30)
[2018-07-19 12:54] LABS: BASOPHILS # (AUTO) 0.04 x10^3/uL (0-0.1); BASOPHILS % (AUTO) 1 % (0-1); EOSINOPHILS # (AUTO) 0.25 x10^3/uL (0-0.4); EOSINOPHILS % (AUTO) 6 % (1-7); LYMPHOCYTES # (AUTO) 1.04 x10^3/uL (1-3.4); LYMPHOCYTES % (AUTO) 26 % (22-44); MD NO; MEAN CORPUSCULAR HEMOGLOBIN 33.3 pg (27.5-34.5); MEAN CORPUSCULAR HGB CONC 34.4 g/dL (33.2-36.2); MEAN CORPUSCULAR VOLUME 96.8 fL (81-97); MEAN PLATELET VOLUME 7.9 fL (7.4-10.4); MONOCYTES # (AUTO) 0.44 x10^3/uL (0.2-0.8); MONOCYTES % (AUTO) 11 % (2-9); NEUTROPHILS % (AUTO) 57 % (42-75); PLATELET COUNT 151 x10^3/uL (130-400); RED BLOOD COUNT 4.88 x10^6/uL (4.38-5.82); RED CELL DISTRIBUTION WIDTH 14.9 % (9.4-14.8)
[2018-07-19 12:55] LABS: ALBUMIN 3.4 g/dL (3.4-5.0); ANION GAP 10 mmol/L (5-15); CALCIUM 8.3 mg/dL (8.5-10.1); CHLORIDE 108 mmol/L (98-107)
[2018-07-19 13:01] LABS: ALANINE AMINOTRANSFERASE 81 U/L (12-78); ALKALINE PHOSPHATASE 74 U/L (45-117); BILIRUBIN,TOTAL 0.6 mg/dL (0.2-1.0); CREATININE 1.02 mg/dL (0.7-1.3); TROPONIN I < 0.015 ng/mL (0.000-0.045)
[2018-07-19 14:11] VITALS: BP 129/75
== END 2018-07-19 14:13 | disposition home or self-care (01) ==
LOC: ED 14:07
DX: R53.1 Weakness (principal); R07.89 Other chest pain; J44.9 Chronic obstructive pulmonary disease, unspecified; Z90.89 Acquired absence of other organs; Z90.49 Acquired absence of other specified parts of digestive tract; Z95.0 Presence of cardiac pacemaker; Z87.891 Personal history of nicotine dependence
CPT/HCPCS: 36415; 71045; 80053; 83735; 83880; 84443; 84484; 85025; 93005; 99284

== ENCOUNTER 2018-09-19 07:06 | Inpatient (IN) | payer MEDICARE, MEDICAID ==
[~2018-09-19] VITALS: Ht 172.7 cm; Wt 106.0 kg
--- NOTE | 2018-09-19 07:21 | NUR ---
ER MD IN TO EVAL PT. PT PLACED TO NIBP, CARD MONITOR, CONT PULSE OX. PT STATES PAIN 7/10 IN CHEST
[2018-09-19] MEDS ORDERED: MORPHINE SULFATE 4 MG/ML, 1ML ONE (07:28)
[2018-09-19] MEDS ORDERED: ONDANSETRON 2MG/ML, 2ML IVPush ONE (07:30)
[2018-09-19] MEDS ORDERED: MORPHINE SULFATE 4 MG/ML, 1ML IVPush PRN (07:30)
[2018-09-19] MEDS ORDERED: SODIUM CHLORIDE FLUSH 10ML SYR IVF ONE (07:30)
[2018-09-19] MEDS ORDERED: ONDANSETRON 2MG/ML, 2ML ONE (07:32)
[2018-09-19 07:43] LABS: MEAN CORPUSCULAR HEMOGLOBIN 31.6 pg (27.5-34.5); MEAN CORPUSCULAR HGB CONC 33.1 g/dL (33.2-36.2); MEAN CORPUSCULAR VOLUME 95.4 fL (81-97); MEAN PLATELET VOLUME 7.5 fL (7.4-10.4); PLATELET COUNT 191 x10^3/uL (130-400); RED BLOOD COUNT 4.74 x10^6/uL (4.38-5.82); RED CELL DISTRIBUTION WIDTH 14.3 % (9.4-14.8)
[2018-09-19 07:47] LABS: ALANINE AMINOTRANSFERASE 96 U/L (12-78); ALBUMIN 3.8 g/dL (3.4-5.0); ANION GAP 7 mmol/L (5-15); CALCIUM 8.4 mg/dL (8.5-10.1); CHLORIDE 105 mmol/L (98-107); CREATININE 0.92 mg/dL (0.7-1.3)
[2018-09-19 07:52] LABS: ALKALINE PHOSPHATASE 89 U/L (45-117); BILIRUBIN,TOTAL 1.1 mg/dL (0.2-1.0); TOTAL PROTEIN 7.5 g/dL (6.4-8.2); TROPONIN I < 0.015 ng/mL (0.000-0.045)
[2018-09-19] MEDS ORDERED: MAALOX/HYOSCYAMINE/LIDOCAINE 45 ML BTL PO ONE (08:00)
[2018-09-19] MEDS ORDERED: NITROGLYCERIN SINGLE TAB 0.4 MG SL ONE (08:09)
[2018-09-19] MEDS ORDERED: MAALOX/HYOSCYAMINE/LIDOCAINE 45 ML BTL ONE (08:09)
[2018-09-19] MEDS ORDERED: OXYGEN NS (08:15)
--- NOTE | 2018-09-19 08:16 | NUR ---
Preceptor RN: Provided pt medication per EMAR. Pt appreciative. NADN. No needs expressed at this time. Pt resting on gurney with bedrail up x 1. Call light within reach. Pt remains connected to feather boner, NIBP cuff, and pulse ox. Pt is wearing 3 L oxygen via NC at 92% pulse ox. Pt states he wears oxygen 24/7 at home at 3 liters.
[2018-09-19 08:19] LABS: MD YES
[2018-09-19 08:20] LABS: BAND#(MANUAL) 0.07 x10^3/uL; BANDS%(MANUAL) 1 % (0-7); EOS#(MANUAL) 0.29 x10^3/uL (0.0-0.4); EOS% (MANUAL) 4 % (1-7); LYMPH#(MANUAL) 1.44 x10^3/uL (1-3.4); LYMPHS% (MANUAL) 20 % (22-44); MONOS#(MANUAL) 1.44 x10^3/uL (0.3-2.7); MONOS% (MANUAL) 20 % (2-9); SEG#(MANUAL) 3.96 x10^3/uL (1.8-6.8); SEGS% (MANUAL) 55 % (42-75)
[2018-09-19 08:21] LABS: <PLATELET ESTIMATE> ADEQUATE; <PLT MORPHOLOGY> NORMAL PLT MORPH; <RBC MORPHOLOGY> NORMAL
[2018-09-19] MEDS ORDERED: NITROGLYCERIN SINGLE TAB 0.4 MG SL PRN ×2 (08:30)
[2018-09-19] MEDS ORDERED: SODIUM CHLORIDE FLUSH 10ML SYR IVF PRN (08:30)
--- NOTE | 2018-09-19 08:55 | NUR ---
PT TO BE ADMITTED, ATTEMPTED TO CALL REPORT TO RECIEVING RN. THEY WILL CALL BACK
[2018-09-19] MEDS ORDERED: NITROGLYCERIN 0.4 MG BOTTLE (25 TABS) SL PRN (09:30)
[2018-09-19] MEDS ORDERED: MAALOX/HYOSCYAMINE/LIDOCAINE 45 ML BTL PO PRN (09:30)
--- NOTE | 2018-09-19 09:30 | NUR ---
Provided report to KAELYN Lozoya. All questions answered. Pt ready to transfer to floor from ED.
[2018-09-19 09:49] LABS: D-DIMER 0.72 ug/mlFEU (0.00-0.52); INTERNATIONAL NORMALIZED RATIO 0.95 (0.93-1.1)
[2018-09-19] MEDS ORDERED: ONDANSETRON 2MG/ML, 2ML IVPush PRN (10:00)
[2018-09-19] MEDS ORDERED: LABETALOL 5MG/ML, 20ML IVPush PRN (10:00)
[2018-09-19 10:10] LABS: TROPONIN I < 0.015 ng/mL (0.000-0.045)
[2018-09-19] MEDS: CALCIUM CARBONATE 500 MG TAB.CHEW PO SCH ×2 (10:44→20:32)
[2018-09-19] MEDS: HEPARIN 5,000 UNITS/ML, 1ML SQ SCH ×2 (10:44→17:44)
[2018-09-19] MEDS: SODIUM CHLORIDE 0.9% 1,000 ML IV SCH (10:44)
[2018-09-19] MEDS: morphine SULFATE 10 MG/ML, 1ML IVPush PRN ×2 (12:07→16:10)
[2018-09-19 12:29] VITALS: BP 119/76
[2018-09-19] MEDS ORDERED: OMEPRAZOLE 20 MG CAPSULE.DR ONE (12:53)
[2018-09-19] MEDS: OMEPRAZOLE 20 MG CAPSULE.DR PO SCH (12:55)
[2018-09-19] MEDS: MAALOX/HYOSCYAMINE/LIDOCAINE 45 ML BTL PO PRN (12:55)
[2018-09-19] MEDS ORDERED: ALBUTEROL SULFATE 2.5 MG/3 ML NPPB PRN (13:00)
[2018-09-19 15:51] LABS: TROPONIN I < 0.015 ng/mL (0.000-0.045)
[2018-09-19] MEDS ORDERED: OMNIPAQUE 350 MG/ML, 100ML BOTTLE ONE (17:41)
[2018-09-19] MEDS ORDERED: METOPROLOL TARTRATE 25 MG TABLET PO ONE (18:00)
[2018-09-19] MEDS ORDERED: BENZONATATE 100 MG CAPSULE ONE (18:11)
[2018-09-19] MEDS: BENZONATATE 100 MG CAPSULE PO SCH (18:14)
[2018-09-19] MEDS ORDERED: LORazepam 1MG TABLET PO PRN (19:00)
[2018-09-19 20:05] VITALS: BP 122/74
[2018-09-19] MEDS: THIAMINE 100MG TABLET PO SCH (20:32)
[2018-09-19] MEDS: FOLIC ACID 1 MG TABLET PO SCH (20:32)
[2018-09-19] MEDS: ATORVASTATIN 40 MG TABLET PO SCH (20:32)
[2018-09-19] MEDS: ACETAMINOPHEN 325 MG TABLET PO PRN (20:32)
[2018-09-19 22:16] LABS: TROPONIN I 0.076 ng/mL (0.000-0.045)
[2018-09-19 22:23] VITALS: BP 100/63
[2018-09-20] VITALS (7 sets, daily range): BP systolic 93–153; BP diastolic 61–83
[2018-09-20] MEDS: HEPARIN 5,000 UNITS/ML, 1ML SQ SCH ×3 (02:30→18:05)
[2018-09-20] MEDS: ASPIRIN 325 MG TABLET EC PO SCH (05:13)
[2018-09-20] MEDS: OMEPRAZOLE 20 MG CAPSULE.DR PO SCH ×2 (05:14→18:04)
[2018-09-20 05:54] LABS: BASOPHILS # (AUTO) 0.03 x10^3/uL (0-0.1); BASOPHILS % (AUTO) 1 % (0-1); EOSINOPHILS # (AUTO) 0.03 x10^3/uL (0-0.4); EOSINOPHILS % (AUTO) 1 % (1-7); LYMPHOCYTES # (AUTO) 0.28 x10^3/uL (1-3.4); LYMPHOCYTES % (AUTO) 7 % (22-44); MD NO; MEAN CORPUSCULAR HGB CONC 33.5 g/dL (33.2-36.2); MEAN CORPUSCULAR VOLUME 95.6 fL (81-97); MEAN PLATELET VOLUME 8.2 fL (7.4-10.4); MONOCYTES # (AUTO) 0.43 x10^3/uL (0.2-0.8); MONOCYTES % (AUTO) 10 % (2-9); NEUTROPHILS % (AUTO) 82 % (42-75); PLATELET COUNT 152 x10^3/uL (130-400); RED BLOOD COUNT 4.55 x10^6/uL (4.38-5.82); RED CELL DISTRIBUTION WIDTH 14.2 % (9.4-14.8)
[2018-09-20 06:09] LABS: CHLORIDE 97 mmol/L (98-107)
[2018-09-20 06:14] LABS: ALANINE AMINOTRANSFERASE 76 U/L (12-78); ALBUMIN 3.5 g/dL (3.4-5.0); ALKALINE PHOSPHATASE 80 U/L (45-117); ANION GAP 7 mmol/L (5-15); BILIRUBIN,TOTAL 1.8 mg/dL (0.2-1.0); CALCIUM 8.5 mg/dL (8.5-10.1)
[2018-09-20] MEDS: BENZONATATE 100 MG CAPSULE PO SCH ×3 (07:45→20:10)
[2018-09-20] MEDS: ACETAMINOPHEN 325 MG TABLET PO PRN ×2 (07:45→13:46)
[2018-09-20] MEDS: SODIUM CHLORIDE 0.9% 1,000 ML IV SCH (07:50)
[2018-09-20] MEDS ORDERED: SODIUM PHOSPHATE 10 MMOL in SODIUM CHLORIDE 0.9% 500 ML IV ONE (09:00)
[2018-09-20] MEDS: MAALOX/HYOSCYAMINE/LIDOCAINE 45 ML BTL PO PRN ×2 (09:05→22:21)
[2018-09-20] MEDS: METOPROLOL TARTRATE 25 MG TABLET PO SCH ×2 (09:15→18:05)
[2018-09-20 09:22] LABS: TROPONIN I 0.065 ng/mL (0.000-0.045)
[2018-09-20] MEDS ORDERED: OMNIPAQUE 350 MG/ML, 100ML BOTTLE ONE (10:04)
[2018-09-20] MEDS: FOLIC ACID 1 MG TABLET PO SCH (10:43)
[2018-09-20] MEDS: CALCIUM CARBONATE 500 MG TAB.CHEW PO SCH ×2 (10:43→20:10)
[2018-09-20] MEDS: THIAMINE 100MG TABLET PO SCH (10:44)
[2018-09-20] MEDS: MULTIVITAMINS/MINERALS TABLET PO SCH (10:44)
[2018-09-20 13:37] LABS: MICROSCOPIC NOT IND
[2018-09-20] MEDS: LORazepam 0.5MG TABLET PO PRN (13:43)
[2018-09-20 13:52] LABS: CULTURE INDICATED? NO
[2018-09-20 16:22] LABS: CLOSTRIDIUM DIFFICILE ANTIGEN NEGATIVE; CLOSTRIDIUM DIFFICILE TOXIN NEGATIVE (Negative)
[2018-09-20] MEDS: LORazepam 1MG TABLET PO PRN (18:10)
[2018-09-20] MEDS ORDERED: CEFTRIAXONE PMX 1GM/50ML 50 ML IV SCH (19:00)
[2018-09-20] MEDS: DOXYCYCLINE 100 MG in DEXTROSE 5% 250 ML IV SCH (20:10)
[2018-09-20] MEDS: ATORVASTATIN 40 MG TABLET PO SCH (20:10)
[2018-09-21] VITALS (9 sets, daily range): BP systolic 86–151; BP diastolic 53–99
[2018-09-21] MEDS: HEPARIN 5,000 UNITS/ML, 1ML SQ SCH ×3 (02:57→19:50)
[2018-09-21] MEDS: ASPIRIN 325 MG TABLET EC PO SCH (04:14)
[2018-09-21] MEDS: OMEPRAZOLE 20 MG CAPSULE.DR PO SCH ×2 (04:14→16:35)
[2018-09-21] MEDS: LORazepam 1MG TABLET PO PRN ×2 (04:15→16:33)
[2018-09-21 05:37] LABS: ALBUMIN 3.3 g/dL (3.4-5.0); ANION GAP 6 mmol/L (5-15); CALCIUM 8.2 mg/dL (8.5-10.1); CHLORIDE 100 mmol/L (98-107)
[2018-09-21 05:41] LABS: ALANINE AMINOTRANSFERASE 119 U/L (12-78); ALKALINE PHOSPHATASE 87 U/L (45-117); BILIRUBIN,TOTAL 1.5 mg/dL (0.2-1.0); CREATININE 1.25 mg/dL (0.7-1.3); TOTAL PROTEIN 6.6 g/dL (6.4-8.2)
[2018-09-21] MEDS: METOPROLOL TARTRATE 25 MG TABLET PO SCH ×2 (06:02→17:05)
[2018-09-21] MEDS ORDERED: ACETAMINOPHEN 650 MG SUPP PR PRN (07:00)
[2018-09-21] MEDS ORDERED: AMPICILLIN/SULBACTAM 1,500 MG in SODIUM CHLORIDE 0.9% 50 ML IV SCH (07:00)
[2018-09-21] MEDS ORDERED: ZOSYN PER PHARMACY MC PRN (08:00)
[2018-09-21] MEDS ORDERED: VANCOMYCIN PER PHARMACY MC PRN (08:00)
[2018-09-21] MEDS ORDERED: POTASSIUM PHOSPHATE 44 MEQ in SODIUM CHLORIDE 0.9% 500 ML IV ONE (08:00)
[2018-09-21] MEDS ORDERED: ALBUTEROL/IPRATROPIUM 2.5MG/0.5MG, 3 ML HHN SCH (08:00)
[2018-09-21] MEDS: DOXYCYCLINE 100 MG in DEXTROSE 5% 250 ML IV SCH ×2 (08:15→19:50)
[2018-09-21] MEDS ORDERED: PHARMACOKINETIC MONITORING MC PRN (08:30)
[2018-09-21] MEDS: CALCIUM CARBONATE 500 MG TAB.CHEW PO SCH ×2 (09:00→20:10)
[2018-09-21] MEDS ORDERED: LORazepam 2 MG/ML, 1ML ONE (09:09)
[2018-09-21] MEDS: FOLIC ACID 1 MG TABLET PO SCH (10:52)
[2018-09-21] MEDS: THIAMINE 100MG TABLET PO SCH (10:52)
[2018-09-21] MEDS: BENZONATATE 100 MG CAPSULE PO SCH ×3 (10:52→20:10)
[2018-09-21] MEDS: MULTIVITAMINS/MINERALS TABLET PO SCH (10:52)
[2018-09-21] MEDS: GUAIFENESIN 200 MG TABLET PO SCH ×3 (10:57→20:10)
[2018-09-21] MEDS: PIPERACILLIN/TAZO/PMX 3.375GM 50 ML IV SCH ×3 (11:12→23:06)
--- NOTE | 2018-09-21 11:27 | NUR ---
REC PUREE/NTL; swallow precaution sheet posted at bedside Addendum: 09/21/18 at [address] Amended: Links added.
[2018-09-21] MEDS: VANCOMYCIN 2,000 MG in SODIUM CHLORIDE 0.9% 500 ML IV SCH (12:07)
[2018-09-21] MEDS ORDERED: POTASSIUM CHLORIDE 20 MEQ, MAGNESIUM SULFATE 1 GM, THIAMINE 200 MG, FOLIC ACID 1 MG, MV... IV SCH (16:30)
[2018-09-21] MEDS: morphine SULFATE 10 MG/ML, 1ML IVPush PRN (23:05)
[2018-09-22] VITALS (8 sets, daily range): BP systolic 86–132; BP diastolic 40–72
[2018-09-22] MEDS: HEPARIN 5,000 UNITS/ML, 1ML SQ SCH ×3 (04:50→20:32)
[2018-09-22] MEDS: GUAIFENESIN 200 MG TABLET PO SCH ×4 (04:50→20:32)
[2018-09-22] MEDS: ASPIRIN 81 MG TABLET EC PO SCH (04:51)
[2018-09-22] MEDS: METOPROLOL TARTRATE 25 MG TABLET PO SCH ×2 (04:51→17:55)
[2018-09-22] MEDS: PIPERACILLIN/TAZO/PMX 3.375GM 50 ML IV SCH ×3 (04:57→17:53)
[2018-09-22 05:10] LABS: BASOPHILS # (AUTO) 0.04 x10^3/uL (0-0.1); BASOPHILS % (AUTO) 1 % (0-1); EOSINOPHILS # (AUTO) 0.17 x10^3/uL (0-0.4); EOSINOPHILS % (AUTO) 4 % (1-7); LYMPHOCYTES # (AUTO) 0.59 x10^3/uL (1-3.4); LYMPHOCYTES % (AUTO) 13 % (22-44); MD NO; MEAN CORPUSCULAR HEMOGLOBIN 31.5 pg (27.5-34.5); MEAN CORPUSCULAR HGB CONC 32.7 g/dL (33.2-36.2); MEAN CORPUSCULAR VOLUME 96.3 fL (81-97); MEAN PLATELET VOLUME 8.4 fL (7.4-10.4); MONOCYTES # (AUTO) 0.33 x10^3/uL (0.2-0.8); MONOCYTES % (AUTO) 7 % (2-9); NEUTROPHILS % (AUTO) 76 % (42-75); PLATELET COUNT 159 x10^3/uL (130-400); RED BLOOD COUNT 4.09 x10^6/uL (4.38-5.82)
[2018-09-22 05:25] LABS: ALBUMIN 2.7 g/dL (3.4-5.0); ANION GAP 6 mmol/L (5-15); CALCIUM 7.6 mg/dL (8.5-10.1); CHLORIDE 105 mmol/L (98-107)
[2018-09-22 05:29] LABS: ALANINE AMINOTRANSFERASE 112 U/L (12-78); ALKALINE PHOSPHATASE 79 U/L (45-117); BILIRUBIN,TOTAL 1.6 mg/dL (0.2-1.0); CREATININE 1.27 mg/dL (0.7-1.3); TOTAL PROTEIN 6.1 g/dL (6.4-8.2)
[2018-09-22] MEDS: OMEPRAZOLE 20 MG CAPSULE.DR PO SCH ×2 (05:34→17:53)
[2018-09-22] MEDS ORDERED: DEXTROSE 50%, 50ML VIAL IVPush ONE (08:30)
[2018-09-22] MEDS ORDERED: INSULIN REGULAR 100 UNITS/ML, 3ML VIAL IVPush ONE (08:30)
[2018-09-22] MEDS ORDERED: SODIUM POLYSTYRENE SULFONATE ORAL SUSP PO ONE (08:30)
[2018-09-22] MEDS: DOXYCYCLINE 100 MG in DEXTROSE 5% 250 ML IV SCH ×2 (08:31→20:31)
[2018-09-22] MEDS: SODIUM CHLORIDE 0.9% 1,000 ML IV SCH ×2 (08:31→21:50)
[2018-09-22] MEDS: TAMSULOSIN 0.4 MG CAP.ER.24H PO SCH (08:42)
[2018-09-22] MEDS: BENZONATATE 100 MG CAPSULE PO SCH ×3 (08:42→20:32)
[2018-09-22] MEDS: CALCIUM CARBONATE 500 MG TAB.CHEW PO SCH ×2 (08:42→20:32)
[2018-09-22] MEDS: LORazepam 0.5MG TABLET PO PRN ×3 (09:02→22:17)
[2018-09-22] MEDS: VANCOMYCIN 2,000 MG in SODIUM CHLORIDE 0.9% 500 ML IV SCH (12:16)
[2018-09-22 12:33] LABS: ANION GAP 2 mmol/L (5-15); CALCIUM 7.8 mg/dL (8.5-10.1); CHLORIDE 107 mmol/L (98-107)
[2018-09-22 12:34] LABS: CREATININE 1.24 mg/dL (0.7-1.3)
[2018-09-22] MEDS ORDERED: MORPHINE SULFATE 4 MG/ML, 1ML ONE (14:23)
[2018-09-22] MEDS ORDERED: MORPHINE SULFATE 4 MG/ML, 1ML IVPush ONE (14:30)
[2018-09-22 15:03] LABS: TROPONIN I 0.048 ng/mL (0.000-0.045)
[2018-09-22] MEDS: ACETAMINOPHEN 325 MG TABLET PO PRN (22:17)
[2018-09-23] MEDS: PIPERACILLIN/TAZO/PMX 3.375GM 50 ML IV SCH ×4 (00:53→17:39)
[2018-09-23 02:14] VITALS: BP 102/64
[2018-09-23 05:58] LABS: BASOPHILS # (AUTO) 0.02 x10^3/uL (0-0.1); BASOPHILS % (AUTO) 0 % (0-1); EOSINOPHILS # (AUTO) 0.17 x10^3/uL (0-0.4); EOSINOPHILS % (AUTO) 4 % (1-7); LYMPHOCYTES # (AUTO) 0.58 x10^3/uL (1-3.4); LYMPHOCYTES % (AUTO) 12 % (22-44); MD NO; MEAN CORPUSCULAR HEMOGLOBIN 32.4 pg (27.5-34.5); MEAN CORPUSCULAR HGB CONC 33.2 g/dL (33.2-36.2); MEAN CORPUSCULAR VOLUME 97.7 fL (81-97); MEAN PLATELET VOLUME 8.6 fL (7.4-10.4); MONOCYTES # (AUTO) 0.54 x10^3/uL (0.2-0.8); MONOCYTES % (AUTO) 12 % (2-9); NEUTROPHILS % (AUTO) 72 % (42-75); PLATELET COUNT 149 x10^3/uL (130-400); RED BLOOD COUNT 3.85 x10^6/uL (4.38-5.82); RED CELL DISTRIBUTION WIDTH 14.9 % (9.4-14.8)
[2018-09-23 06:12] LABS: ALBUMIN 2.4 g/dL (3.4-5.0); ANION GAP 5 mmol/L (5-15); CALCIUM 7.5 mg/dL (8.5-10.1); CHLORIDE 108 mmol/L (98-107)
[2018-09-23 06:17] LABS: ALANINE AMINOTRANSFERASE 80 U/L (12-78); ALKALINE PHOSPHATASE 67 U/L (45-117); BILIRUBIN,TOTAL 1.1 mg/dL (0.2-1.0); CREATININE 0.86 mg/dL (0.7-1.3); TOTAL PROTEIN 5.2 g/dL (6.4-8.2)
[2018-09-23] MEDS: ASPIRIN 81 MG TABLET EC PO SCH (06:17)
[2018-09-23] MEDS: HEPARIN 5,000 UNITS/ML, 1ML SQ SCH (06:17)
[2018-09-23] MEDS: GUAIFENESIN 200 MG TABLET PO SCH ×4 (06:18→22:06)
[2018-09-23] MEDS: METOPROLOL TARTRATE 25 MG TABLET PO SCH (06:18)
[2018-09-23] MEDS: OMEPRAZOLE 20 MG CAPSULE.DR PO SCH ×2 (06:19→17:11)
[2018-09-23 08:38] VITALS: BP 76/49
[2018-09-23] MEDS ORDERED: DOXYCYCLINE 100MG TABLET PO SCH (09:00)
[2018-09-23] MEDS ORDERED: AMOXICILLIN/CLAV 875-125MG TABLET PO SCH (09:00)
[2018-09-23] MEDS ORDERED: SODIUM CHLORIDE 0.9% 1,000ML IVBOLUS ONE (09:00)
[2018-09-23] MEDS ORDERED: METOPROLOL TARTRATE 25 MG TABLET PO SCH (09:00)
[2018-09-23] MEDS ORDERED: ZOSYN PER PHARMACY MC PRN (09:30)
[2018-09-23] MEDS ORDERED: VANCOMYCIN PER PHARMACY MC PRN (09:30)
[2018-09-23] MEDS: DOXYCYCLINE 100 MG in DEXTROSE 5% 250 ML IV SCH ×2 (09:54→22:16)
[2018-09-23] MEDS: ENOXAPARIN 40 MG/0.4 ML SQ SCH (09:55)
[2018-09-23] MEDS: BENZONATATE 100 MG CAPSULE PO SCH ×3 (11:29→22:06)
[2018-09-23] MEDS: TAMSULOSIN 0.4 MG CAP.ER.24H PO SCH (11:29)
[2018-09-23] MEDS: CALCIUM CARBONATE 500 MG TAB.CHEW PO SCH ×2 (11:31→22:06)
[2018-09-23] MEDS: VANCOMYCIN 2,000 MG in SODIUM CHLORIDE 0.9% 500 ML IV SCH (11:58)
[2018-09-23] MEDS: SODIUM CHLORIDE 0.9% 1,000 ML IV SCH (13:54)
[2018-09-23 14:00] VITALS: BP 91/60
[2018-09-23] MEDS: ACETAMINOPHEN 325 MG TABLET PO PRN (15:11)
[2018-09-23 20:26] VITALS: BP 76/45
[2018-09-23] MEDS ORDERED: SODIUM CHLORIDE 0.9%, 500ML IVBOLUS ONE (21:30)
[2018-09-23] MEDS: LORazepam 0.5MG TABLET PO PRN (23:40)
[2018-09-24] MEDS: PIPERACILLIN/TAZO/PMX 3.375GM 50 ML IV SCH ×2 (01:23→07:43)
[2018-09-24] MEDS: ACETAMINOPHEN 325 MG TABLET PO PRN (02:13)
[2018-09-24 02:35] VITALS: BP 110/72
[2018-09-24] MEDS: LORazepam 0.5MG TABLET PO PRN (03:27)
[2018-09-24] MEDS: SODIUM CHLORIDE 0.9% 1,000 ML IV SCH ×2 (05:38→21:16)
[2018-09-24] MEDS: VANCOMYCIN 2,000 MG in SODIUM CHLORIDE 0.9% 500 ML IV SCH ×2 (05:47→23:38)
[2018-09-24] MEDS: GUAIFENESIN 200 MG TABLET PO SCH ×4 (05:48→21:18)
[2018-09-24] MEDS: OMEPRAZOLE 20 MG CAPSULE.DR PO SCH ×2 (05:48→15:07)
[2018-09-24] MEDS: ASPIRIN 81 MG TABLET EC PO SCH (05:48)
[2018-09-24] MEDS: CALCIUM CARBONATE 500 MG TAB.CHEW PO SCH ×2 (07:43→21:18)
[2018-09-24] MEDS: TAMSULOSIN 0.4 MG CAP.ER.24H PO SCH (07:43)
[2018-09-24] MEDS: BENZONATATE 100 MG CAPSULE PO SCH ×3 (07:43→21:18)
[2018-09-24 09:09] VITALS: BP 103/86
[2018-09-24] MEDS: AMPICILLIN/SULBACTAM 3 GM in SODIUM CHLORIDE 0.9% 100 ML IV SCH ×3 (09:19→20:31)
[2018-09-24] MEDS: ENOXAPARIN 40 MG/0.4 ML SQ SCH (11:09)
[2018-09-24] MEDS: DOXYCYCLINE 100 MG in DEXTROSE 5% 250 ML IV SCH (11:09)
--- NOTE | 2018-09-24 12:27 | NUR ---
REC SAMMIEE/THIN; ORANGE SHEET WITH DIET RECOMMENDATION AND SWALLOW STRATEGIES POSTED AT BEDSIDE. Addendum: 09/24/18 at 1227 by Shruti CASTRO Amended: Links added.
[2018-09-24 14:00] VITALS: BP 127/83
[2018-09-24 21:00] VITALS: BP 146/88
[2018-09-24] MEDS: DOXYCYCLINE 100MG TABLET PO SCH (21:18)
[2018-09-25] MEDS: AMPICILLIN/SULBACTAM 3 GM in SODIUM CHLORIDE 0.9% 100 ML IV SCH ×2 (02:38→08:10)
[2018-09-25 02:50] VITALS: BP 114/73
[2018-09-25] MEDS: OMEPRAZOLE 20 MG CAPSULE.DR PO SCH ×2 (05:51→16:34)
[2018-09-25] MEDS: ASPIRIN 81 MG TABLET EC PO SCH (05:51)
[2018-09-25] MEDS: GUAIFENESIN 200 MG TABLET PO SCH ×4 (05:51→21:47)
[2018-09-25 05:58] LABS: ALBUMIN 2.5 g/dL (3.4-5.0); ANION GAP 4 mmol/L (5-15); CALCIUM 7.8 mg/dL (8.5-10.1); CHLORIDE 111 mmol/L (98-107)
[2018-09-25 06:03] LABS: ALANINE AMINOTRANSFERASE 54 U/L (12-78); ALKALINE PHOSPHATASE 82 U/L (45-117); BILIRUBIN,TOTAL 0.9 mg/dL (0.2-1.0); CREATININE 0.58 mg/dL (0.7-1.3); TOTAL PROTEIN 5.2 g/dL (6.4-8.2)
[2018-09-25 06:04] LABS: MEAN CORPUSCULAR HEMOGLOBIN 31.6 pg (27.5-34.5); MEAN CORPUSCULAR HGB CONC 33.1 g/dL (33.2-36.2); MEAN CORPUSCULAR VOLUME 95.6 fL (81-97); PLATELET COUNT 145 x10^3/uL (130-400); RED BLOOD COUNT 3.61 x10^6/uL (4.38-5.82); RED CELL DISTRIBUTION WIDTH 14.6 % (9.4-14.8)
[2018-09-25 07:44] LABS: BASOPHILS # (AUTO) 0.03 x10^3/uL (0-0.1); BASOPHILS % (AUTO) 1 % (0-1); EOSINOPHILS # (AUTO) 0.16 x10^3/uL (0-0.4); EOSINOPHILS % (AUTO) 6 % (1-7); LYMPHOCYTES # (AUTO) 0.55 x10^3/uL (1-3.4); LYMPHOCYTES % (AUTO) 20 % (22-44); MD SCAN; MONOCYTES % (AUTO) 18 % (2-9); NEUTROPHILS % (AUTO) 55 % (42-75)
[2018-09-25 08:06] VITALS: BP 122/75
[2018-09-25] MEDS: DOXYCYCLINE 100MG TABLET PO SCH ×2 (08:10→21:47)
[2018-09-25] MEDS: ENOXAPARIN 40 MG/0.4 ML SQ SCH (08:10)
[2018-09-25] MEDS: CALCIUM CARBONATE 500 MG TAB.CHEW PO SCH ×2 (08:10→21:47)
[2018-09-25] MEDS: TAMSULOSIN 0.4 MG CAP.ER.24H PO SCH (08:10)
[2018-09-25] MEDS: BENZONATATE 100 MG CAPSULE PO SCH ×3 (08:13→21:46)
[2018-09-25] MEDS: AMOXICILLIN/CLAV 875-125MG TABLET PO SCH ×2 (09:30→21:46)
--- NOTE | 2018-09-25 10:40 | NUR ---
REC CHOPPED/THIN; ORANGE SHEET WITH DIET RECOMMENDATION AND SWALLOW STRATEGIES POSTED AT BEDSIDE. Addendum: 09/25/18 at 1041 by Shruti CASTRO Amended: Links added.
[2018-09-25 13:45] LABS: TROPONIN I 0.025 ng/mL (0.000-0.045)
[2018-09-25 14:08] VITALS: BP 119/74
[2018-09-25 17:49] LABS: TROPONIN I 0.024 ng/mL (0.000-0.045)
[2018-09-25 20:26] VITALS: BP 99/61
[2018-09-26 01:27] VITALS: BP 128/80
[2018-09-26] MEDS: ASPIRIN 81 MG TABLET EC PO SCH (05:06)
[2018-09-26] MEDS: OMEPRAZOLE 20 MG CAPSULE.DR PO SCH ×2 (05:07→16:36)
[2018-09-26] MEDS: GUAIFENESIN 200 MG TABLET PO SCH ×4 (05:09→21:03)
[2018-09-26 07:58] VITALS: BP 135/75
[2018-09-26] MEDS: ENOXAPARIN 40 MG/0.4 ML SQ SCH (09:30)
[2018-09-26] MEDS: TAMSULOSIN 0.4 MG CAP.ER.24H PO SCH (09:31)
[2018-09-26] MEDS: BENZONATATE 100 MG CAPSULE PO SCH ×3 (09:31→21:03)
[2018-09-26] MEDS: DOXYCYCLINE 100MG TABLET PO SCH ×2 (09:31→21:03)
[2018-09-26] MEDS: CALCIUM CARBONATE 500 MG TAB.CHEW PO SCH (09:31)
[2018-09-26] MEDS: AMOXICILLIN/CLAV 875-125MG TABLET PO SCH ×2 (09:31→21:03)
[2018-09-26] MEDS ORDERED: REGADENOSON 0.4 MG/5 ML SYRINGE ONE (10:11)
[2018-09-26 10:33] LABS: ALBUMIN 2.4 g/dL (3.4-5.0); ANION GAP 8 mmol/L (5-15); CHLORIDE 106 mmol/L (98-107)
[2018-09-26 10:37] LABS: ALANINE AMINOTRANSFERASE 43 U/L (12-78); ALKALINE PHOSPHATASE 75 U/L (45-117); BILIRUBIN,TOTAL 0.8 mg/dL (0.2-1.0); CREATININE 0.61 mg/dL (0.7-1.3); TOTAL PROTEIN 5.3 g/dL (6.4-8.2)
[2018-09-26 12:30] LABS: MEAN CORPUSCULAR HEMOGLOBIN 31.1 pg (27.5-34.5); MEAN CORPUSCULAR HGB CONC 32.5 g/dL (33.2-36.2); MEAN CORPUSCULAR VOLUME 95.6 fL (81-97); MEAN PLATELET VOLUME 7.6 fL (7.4-10.4); PLATELET COUNT 182 x10^3/uL (130-400); RED BLOOD COUNT 3.83 x10^6/uL (4.38-5.82); RED CELL DISTRIBUTION WIDTH 15.2 % (9.4-14.8)
[2018-09-26 12:52] LABS: BASOPHILS # (AUTO) 0.01 x10^3/uL (0-0.1); BASOPHILS % (AUTO) 0 % (0-1); EOSINOPHILS # (AUTO) 0.14 x10^3/uL (0-0.4); EOSINOPHILS % (AUTO) 4 % (1-7); LYMPHOCYTES # (AUTO) 0.49 x10^3/uL (1-3.4); LYMPHOCYTES % (AUTO) 14 % (22-44); MD SCAN; MONOCYTES # (AUTO) 0.64 x10^3/uL (0.2-0.8); MONOCYTES % (AUTO) 18 % (2-9); NEUTROPHILS # (AUTO) 2.25 x10^3/uL (1.8-6.8); NEUTROPHILS % (AUTO) 64 % (42-75)
[2018-09-26 13:08] VITALS: BP 130/77
[2018-09-26 19:38] VITALS: BP 118/69
[2018-09-27 00:31] VITALS: BP 136/84
[2018-09-27] MEDS: ASPIRIN 81 MG TABLET EC PO SCH (05:30)
[2018-09-27] MEDS: OMEPRAZOLE 20 MG CAPSULE.DR PO SCH ×2 (05:30→16:44)
[2018-09-27] MEDS: GUAIFENESIN 200 MG TABLET PO SCH ×3 (05:31→16:43)
[2018-09-27 07:58] VITALS: BP 103/62
[2018-09-27] MEDS: TAMSULOSIN 0.4 MG CAP.ER.24H PO SCH (09:33)
[2018-09-27] MEDS: AMOXICILLIN/CLAV 875-125MG TABLET PO SCH (09:34)
[2018-09-27] MEDS: ENOXAPARIN 40 MG/0.4 ML SQ SCH (09:34)
[2018-09-27] MEDS: BENZONATATE 100 MG CAPSULE PO SCH ×2 (09:34→16:43)
[2018-09-27] MEDS: DOXYCYCLINE 100MG TABLET PO SCH (09:34)
[2018-09-27 13:05] VITALS: BP 117/78
[2018-09-27] MEDS ORDERED: AMOX1TAB12 PO (13:16)
[2018-09-27] MEDS ORDERED: ASPI81TA45 PO (13:16)
[2018-09-27] MEDS ORDERED: THIA100T67 PO (13:16)
[2018-09-27] MEDS ORDERED: Tamsulosin PO (13:16)
[2018-09-27] MEDS ORDERED: GUAI200T3 PO (13:16)
[2018-09-27] MEDS ORDERED: FOLI-17 PO (13:16)
[2018-09-27] MEDS ORDERED: OMEP-110 PO (13:16)
[2018-09-27] MEDS ORDERED: DOXY100T PO (13:16)
--- NOTE | 2018-09-27 15:21 | NUR ---
REC: Reg/thins Addendum: 09/27/18 at 1521 by Zoya CASTRO Amended: Links added.
== END 2018-09-27 18:30 | DRG 177 ==
LOC: ED 08:35 → EDIP 09:11 → UNDOADMOB 09:11 → 5SO 09:37 → EDIP 09:37 → 5SO 09-20 08:33 → EDIP 09-20 08:33 → OBSVTOIN 09-20 08:34 → 5SO 09-21 08:53
PROVIDERS: ADMIT Internal Medicine; ATTEND Internal Medicine
DX: J69.0 Pneumonitis due to inhalation of food and vomit (principal); J96.21 Acute and chronic respiratory failure with hypoxia; J98.11 Atelectasis; E87.1 Hypo-osmolality and hyponatremia; F10.239 Alcohol dependence with withdrawal, unspecified; I24.8 Other forms of acute ischemic heart disease; K21.9 Gastro-esophageal reflux disease without esophagitis; B18.2 Chronic viral hepatitis C; E66.9 Obesity, unspecified; E83.39 Other disorders of phosphorus metabolism; E83.51 Hypocalcemia; E87.5 Hyperkalemia; G89.4 Chronic pain syndrome; J44.9 Chronic obstructive pulmonary disease, unspecified; Z82.49 Family history of ischemic heart disease and other diseases of the circulatory system; Z95.0 Presence of cardiac pacemaker; Z99.81 Dependence on supplemental oxygen; Z90.49 Acquired absence of other specified parts of digestive tract; Z68.35 Body mass index [BMI] 35.0-35.9, adult
CPT/HCPCS: 36415; 70491; 71045; 71275; 76700; 78452; 80048; 80053; 80202; 81003; 82533; 83605; 83690; 83735; 84100; 84145; 84484; 85025; 85379; 85610; 85730; 87040; 87081; 87205; 87324; 87880; 93005; 93017; 93306; 96374; 96375; G0378; J0295; J0696; J1644; J1650; J1815; J2405; J2543; J2785; J3370; J3411; J3475; J3480; J7060; Q9967; A9502; J2270; J7030; J7040

== ENCOUNTER 2020-03-11 18:46 | Emergency (ER) | payer MEDICARE ==
[~2020-03-11] VITALS: Ht 172.7 cm; Wt 100.0 kg
[~2020-03-11 18:46] MED LIST changes: -ACET-1757 PO; +ACET-2065 PO; +ACET325T26 PO; +AMOX1TAB12 PO; +ASPI81TA45 PO; +DIPH25CA61 PO; +FOLI-17 PO; +GUAI200T37 PO; +HYDR-826 PO; +LEVO25TA2 PO; +OMEP-110 PO; +OXYGEN NS; +PRED20TA PO; +THIA100T67 PO; +TRIA15CR61 TP; +Tamsulosin PO
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
[2020-03-11] MEDS ORDERED: OXYcodone/APAP 5/325MG TABLET ONE (19:17)
--- NOTE | 2020-03-11 19:21 | NUR ---
MUSIC EXECUTIVE PER MAR.
[2020-03-11] MEDS ORDERED: OXYcodone/APAP 5/325MG TABLET PO ONE (19:30)
--- NOTE | 2020-03-11 20:14 | NUR ---
LAB AT BEDSIDE
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
[2020-03-11 20:38] LABS: ALBUMIN 3.1 g/dL (3.4-5.0); ANION GAP 9 mmol/L (5-15); CALCIUM 8.2 mg/dL (8.5-10.1); CHLORIDE 108 mmol/L (98-107); CREATININE 0.69 mg/dL (0.7-1.3)
--- NOTE | 2020-03-11 20:51 | NUR ---
CBC TO BE REDRAWN BY LAB.
--- NOTE | 2020-03-11 21:06 | NUR ---
MED REQUESTED FROM PHARMACY.
--- NOTE | 2020-03-11 21:14 | NUR ---
LAB AT BEDSIDE FOR REDRAW.
[2020-03-11 21:29] LABS: BASOPHILS % (AUTO) 1 % (0-1); EOSINOPHILS % (AUTO) 3 % (1-7); LYMPHOCYTES % (AUTO) 17 % (22-44); MEAN CORPUSCULAR HEMOGLOBIN 34.2 pg (27.5-34.5); MEAN CORPUSCULAR HGB CONC 34.6 g/dL (33.2-36.2); MEAN PLATELET VOLUME 7.1 fL (7.4-10.4); MONOCYTES % (AUTO) 9 % (2-9); NEUTROPHILS % (AUTO) 70 % (42-75); PLATELET COUNT 230 x10^3/uL (130-400); RED BLOOD COUNT 4.59 x10^6/uL (4.38-5.82); RED CELL DISTRIBUTION WIDTH 13.6 % (9.4-14.8)
[2020-03-11 21:30] LABS: MD NO
[2020-03-11] MEDS ORDERED: TRIAMCINOLONE CRM 0.1%, 15GM TP SCH (21:30)
[2020-03-11 22:37] VITALS: BP 160/84
== END 2020-03-11 22:39 | disposition home or self-care (01) ==
LOC: ED 19:42
DX: L40.0 Psoriasis vulgaris (principal); K21.9 Gastro-esophageal reflux disease without esophagitis; J44.9 Chronic obstructive pulmonary disease, unspecified; Z87.891 Personal history of nicotine dependence
CPT/HCPCS: 36415; 80048; 82040; 85025; 99283

== ENCOUNTER 2020-03-16 22:09 | Emergency (ER) | payer MEDICARE ==
[~2020-03-16] VITALS: Ht 172.7 cm; Wt 100.0 kg
--- NOTE | 2020-03-16 23:00 | NUR ---
PATIENT RESTING ON STRETCHER WITH EYES CLOSED, WAKES EASILY, CALL BLANCO WITHIN REACH, VSS, NAD WILL CONTINUE TO MONITOR
[2020-03-16 23:46] VITALS: BP 137/79
== END 2020-03-17 00:01 | disposition home or self-care (01) ==
LOC: ED 22:36
DX: S16.1XXA Strain of muscle, fascia and tendon at neck level, initial encounter (principal); S13.4XXA Sprain of ligaments of cervical spine, initial encounter; S50.01XA Contusion of right elbow, initial encounter; K21.9 Gastro-esophageal reflux disease without esophagitis; Z95.0 Presence of cardiac pacemaker; Z90.89 Acquired absence of other organs; Z90.49 Acquired absence of other specified parts of digestive tract; Z87.891 Personal history of nicotine dependence; X58.XXXA Exposure to other specified factors, initial encounter; Y93.89 Activity, other specified; Y92.89 Other specified places as the place of occurrence of the external cause; Y99.8 Other external cause status
CPT/HCPCS: 72050; 99284

== ENCOUNTER 2020-04-20 15:27 | Emergency (ER) | payer MEDICARE ==
[~2020-04-20] VITALS: Ht 172.7 cm; Wt 90.1 kg
[~2020-04-20 15:27] MED LIST changes: -FOLI-17 PO; +FOLI1TAB32 PO
--- NOTE | 2020-04-20 16:25 | NUR ---
IRRIGATOR OVERHEAD: PT TO ROOM FROM [facility]
[2020-04-20 16:38] LABS: BASOPHILS % (AUTO) 1 % (0-1); EOSINOPHILS % (AUTO) 9 % (1-7); LYMPHOCYTES % (AUTO) 17 % (22-44); MEAN CORPUSCULAR HEMOGLOBIN 34.7 pg (27.5-34.5); MEAN CORPUSCULAR HGB CONC 34.8 g/dL (33.2-36.2); MEAN PLATELET VOLUME 6.6 fL (7.4-10.4); MONOCYTES % (AUTO) 11 % (2-9); NEUTROPHILS % (AUTO) 63 % (42-75); PLATELET COUNT 366 x10^3/uL (130-400); RED BLOOD COUNT 4.29 x10^6/uL (4.38-5.82)
[2020-04-20 16:47] LABS: ALBUMIN 3.3 g/dL (3.4-5.0); ANION GAP 16 mmol/L (5-15); CALCIUM 9.1 mg/dL (8.5-10.1); CHLORIDE 109 mmol/L (98-107); CREATININE 0.74 mg/dL (0.7-1.3)
[2020-04-20 16:52] LABS: MD NO
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
--- NOTE | 2020-04-20 17:13 | NUR ---
PT RESTING IN ROOM. NO ACUTE DISTRESS NOTED. VS STABLE. CALL LIGHT IN PLACE. WILL CONTINUE TO MONITOR.
--- NOTE | 2020-04-20 17:39 | NUR ---
DR JUNIOR IN ROOM UPDATING PATIENT
[2020-04-20 17:57] VITALS: BP 166/93
== END 2020-04-20 18:49 | disposition home or self-care (01) ==
LOC: ED 16:47
DX: L40.0 Psoriasis vulgaris (principal); R21 Rash and other nonspecific skin eruption
CPT/HCPCS: 36415; 80048; 82040; 85025; 99283; Q0177

== ENCOUNTER 2020-05-13 16:15 | Inpatient (IN) | payer MEDICARE ==
[~2020-05-13] VITALS: Ht 172.7 cm; Wt 96.5 kg
--- NOTE | 2020-05-13 16:35 | NUR ---
UNABLE TO OBTAIN EKG IN TRIAGE D/T PT MOVEMENT
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
[2020-05-13] MEDS ORDERED: SODIUM CHLORIDE FLUSH 10ML SYR IVF ONE ×2 (17:30)
[2020-05-13] MEDS ORDERED: DIPHENHYDRAMINE 50 MG/ML, 1ML IVPush ONE ×2 (17:30→20:00)
[2020-05-13] MEDS ORDERED: ONDANSETRON 2MG/ML, 2ML IVPush ONE (17:30)
[2020-05-13] MEDS ORDERED: MORPHINE SULFATE 4 MG/ML, 1ML ONE ×2 (17:31→18:11)
[2020-05-13] MEDS: MORPHINE SULFATE 4 MG/ML, 1ML IVPush PRN ×2 (17:39→18:15)
[2020-05-13] MEDS ORDERED: DIPHENHYDRAMINE 50 MG/ML, 1ML ONE ×2 (17:40→20:05)
[2020-05-13] MEDS ORDERED: ONDANSETRON 2MG/ML, 2ML ONE (17:40)
--- NOTE | 2020-05-13 17:46 | NUR ---
MEDICATED PER MAR
--- NOTE | 2020-05-13 17:49 | NUR ---
LAB AT BEDSIDE FOR LABS AND BLOOD CULTURES.
[2020-05-13 18:10] LABS: BASOPHILS % (AUTO) 1 % (0-1); EOSINOPHILS % (AUTO) 8 % (1-7); LYMPHOCYTES % (AUTO) 16 % (22-44); MEAN CORPUSCULAR HGB CONC 34.9 g/dL (33.2-36.2); MEAN PLATELET VOLUME 6.9 fL (7.4-10.4); MONOCYTES % (AUTO) 14 % (2-9); NEUTROPHILS % (AUTO) 60 % (42-75); PLATELET COUNT 170 x10^3/uL (130-400); RED BLOOD COUNT 4.17 x10^6/uL (4.38-5.82); RED CELL DISTRIBUTION WIDTH 15.3 % (9.4-14.8)
[2020-05-13 18:14] LABS: MD NO
[2020-05-13 18:22] LABS: ALANINE AMINOTRANSFERASE 31 U/L (12-78); ALBUMIN 2.9 g/dL (3.4-5.0); ANION GAP 8 mmol/L (5-15); CHLORIDE 105 mmol/L (98-107); CREATININE 0.76 mg/dL (0.7-1.3)
[2020-05-13 18:29] LABS: ALKALINE PHOSPHATASE 69 U/L (45-117); BILIRUBIN,TOTAL 0.6 mg/dL (0.2-1.0); TOTAL PROTEIN 7.1 g/dL (6.4-8.2)
[2020-05-13 18:37] LABS: AMPHETAMINE SCREEN, URINE Negative (Negative); BARBITURATE SCREEN, URINE Negative (Negative); BENZODIAZEPINE SCREEN, URINE Negative (Negative); CANNABINOID SCREEN, URINE Negative (Negative); COCAINE SCREEN, URINE Negative (Negative); METHADONE SCREEN, URINE Negative (Negative); OPIATE SCREEN, URINE Positive (Negative)
[2020-05-13] MEDS ORDERED: NS + 20MEQ KCL 1,000 ML IV ONE ×2 (18:37→19:00)
[2020-05-13] MEDS ORDERED: LIDOCAINE-MPF 1%, 5ML INFIL ONE (19:00)
[2020-05-13] MEDS ORDERED: LIDOCAINE 1%, 2ML INFIL ONE (19:00)
[2020-05-13] MEDS ORDERED: LIDOCAINE 1%, 10ML INFIL ONE (19:00)
[2020-05-13] MEDS ORDERED: LIDOCAINE-MPF 2%, 2ML INFIL ONE (19:00)
--- NOTE | 2020-05-13 19:07 | NUR ---
IV FLUIDS INFUSING. EDUCATED PT ON NOT PEELING OFF DRY SKIN.
--- NOTE | 2020-05-13 19:53 | NUR ---
PLACED ON 3L NC, PT STATES HE REQUIRES 3L NC HOME O2 WHILE SLEEPING.
[2020-05-13] MEDS ORDERED: LIDOCAINE-MPF 1%, 5ML ONE (20:09)
[2020-05-13] MEDS ORDERED: SILVER NITRATE STICK TP ONE (20:51)
[2020-05-13] MEDS ORDERED: methylPREDNISolone SOD SUCC 125 MG/2 ML ONE (20:59)
[2020-05-13] MEDS ORDERED: methylPREDNISolone SOD SUCC 125 MG/2 ML IVPush ONE (21:00)
[2020-05-13] MEDS ORDERED: AMPICILLIN/SULBACTAM 3 GM in SODIUM CHLORIDE 0.9% 100 ML IV ONE (21:00)
--- NOTE | 2020-05-13 21:45 | NUR ---
REPORT TO [facility].
[2020-05-13] MEDS ORDERED: POTASSIUM CHLORIDE 20 MEQ, MAGNESIUM SULFATE 1 GM, THIAMINE 200 MG, FOLIC ACID 1 MG in ... IV ONE (22:00)
[2020-05-13] MEDS ORDERED: ACETAMINOPHEN 325 MG TABLET PO PRN (22:00)
[2020-05-13] MEDS ORDERED: ONDANSETRON 2MG/ML, 2ML IVPush PRN (22:00)
[2020-05-13] MEDS ORDERED: TEMAZEPAM 15 MG CAPSULE PO PRN (22:00)
[2020-05-13 22:11] VITALS: BP 152/91
[2020-05-13] MEDS ORDERED: LORazepam 1MG TABLET PO PRN ×4 (22:30)
[2020-05-13] MEDS ORDERED: DIAZEPAM 5 MG/ML, 2ML IV ONE (22:30)
[2020-05-13] MEDS ORDERED: LORazepam 0.5MG TABLET PO PRN (22:30)
[2020-05-13] MEDS ORDERED: DIPHENHYDRAMINE 50 MG/ML, 1ML IVPush PRN (22:30)
[2020-05-13] MEDS: FAMOTIDINE 20 MG TABLET PO SCH (22:58)
[2020-05-13] MEDS: ENOXAPARIN 40 MG/0.4 ML SQ SCH (22:59)
[2020-05-13] MEDS: morphine SULFATE 10 MG/ML, 1ML IVPush PRN (22:59)
[2020-05-13] MEDS ORDERED: FLU VACC QS2020-21(6MOS UP)/PF 60MCG/0.5 ML SYR IM-VACC ONE (23:00)
[2020-05-13 23:40] LABS: FREE T4 (FREE THYROXINE) 0.85 ng/dL (0.76-1.46)
[2020-05-14] MEDS ORDERED: DIAZEPAM 5 MG/ML, 2ML IVPush PRN
[2020-05-14 00:10] VITALS: BP 117/68
[2020-05-14] MEDS: SODIUM CHLORIDE 0.9% 1,000 ML IV SCH ×2 (00:13→11:20)
[2020-05-14] MEDS: DIAZEPAM 10 MG TABLET PO SCH ×2 (00:13→05:26)
[2020-05-14] MEDS: TRIAMCINOLONE CRM 0.5%, 15GM TP SCH ×4 (00:14→20:58)
[2020-05-14] MEDS: morphine SULFATE 10 MG/ML, 1ML IVPush PRN ×2 (03:25→21:12)
[2020-05-14 05:40] LABS: BASOPHILS % (AUTO) 1 % (0-1); CALCIUM 7.7 mg/dL (8.5-10.1); CHLORIDE 108 mmol/L (98-107); EOSINOPHILS % (AUTO) 0 % (1-7); LYMPHOCYTES % (AUTO) 8 % (22-44); MEAN CORPUSCULAR HEMOGLOBIN 34.6 pg (27.5-34.5); MEAN CORPUSCULAR HGB CONC 34.1 g/dL (33.2-36.2); MEAN PLATELET VOLUME 6.8 fL (7.4-10.4); MONOCYTES % (AUTO) 2 % (2-9); NEUTROPHILS % (AUTO) 90 % (42-75); PLATELET COUNT 146 x10^3/uL (130-400); RED BLOOD COUNT 3.76 x10^6/uL (4.38-5.82); RED CELL DISTRIBUTION WIDTH 15.1 % (9.4-14.8)
[2020-05-14 05:45] LABS: ALANINE AMINOTRANSFERASE 28 U/L (12-78); ALBUMIN 2.4 g/dL (3.4-5.0); ALKALINE PHOSPHATASE 59 U/L (45-117); ANION GAP 5 mmol/L (5-15); BILIRUBIN,TOTAL 0.6 mg/dL (0.2-1.0); CREATININE 0.84 mg/dL (0.7-1.3); TOTAL PROTEIN 6.2 g/dL (6.4-8.2)
[2020-05-14 06:17] LABS: MD SCAN
[2020-05-14 06:56] VITALS: BP 119/73
[2020-05-14] MEDS: AMPICILLIN/SULBACTAM 3 GM in SODIUM CHLORIDE 0.9% 100 ML IV SCH ×2 (09:38→20:57)
[2020-05-14] MEDS: THIAMINE 100MG TABLET PO SCH (10:02)
[2020-05-14] MEDS: methylPREDNISolone SOD SUCC 125 MG/2 ML IVPush SCH ×2 (10:02→20:57)
[2020-05-14] MEDS: MULTIVITAMIN 1 TABLET PO SCH (10:02)
[2020-05-14] MEDS: FOLIC ACID 1 MG TABLET PO SCH (10:02)
[2020-05-14] MEDS: LORazepam 1MG TABLET PO SCH ×3 (10:02→20:57)
[2020-05-14] MEDS: FAMOTIDINE 20 MG TABLET PO SCH ×2 (10:03→20:57)
[2020-05-14] MEDS: HYDROcodone/APAP 5/325 TABLET PO PRN ×2 (10:04→17:54)
[2020-05-14 12:53] VITALS: BP 136/77
[2020-05-14 18:50] VITALS: BP 118/78
[2020-05-14] MEDS: ENOXAPARIN 40 MG/0.4 ML SQ SCH (20:56)
[2020-05-14] MEDS ORDERED: DIAZEPAM 5 MG TABLET PO SCH (22:30)
[2020-05-15] MEDS: SODIUM CHLORIDE 0.9% 1,000 ML IV SCH ×2 (00:30→17:38)
[2020-05-15 00:41] VITALS: BP 127/74
[2020-05-15 05:03] LABS: BASOPHILS % (AUTO) 0 % (0-1); EOSINOPHILS % (AUTO) 0 % (1-7); LYMPHOCYTES % (AUTO) 9 % (22-44); MEAN CORPUSCULAR HEMOGLOBIN 34.3 pg (27.5-34.5); MEAN CORPUSCULAR HGB CONC 33.6 g/dL (33.2-36.2); MEAN PLATELET VOLUME 7.3 fL (7.4-10.4); MONOCYTES % (AUTO) 7 % (2-9); NEUTROPHILS % (AUTO) 84 % (42-75); PLATELET COUNT 160 x10^3/uL (130-400); RED BLOOD COUNT 3.71 x10^6/uL (4.38-5.82); RED CELL DISTRIBUTION WIDTH 15.4 % (9.4-14.8)
[2020-05-15 05:04] LABS: MD NO
[2020-05-15 05:11] LABS: ALBUMIN 2.4 g/dL (3.4-5.0); ANION GAP 4 mmol/L (5-15); CALCIUM 7.9 mg/dL (8.5-10.1); CHLORIDE 108 mmol/L (98-107)
[2020-05-15 05:14] LABS: ALANINE AMINOTRANSFERASE 21 U/L (12-78); ALKALINE PHOSPHATASE 50 U/L (45-117); BILIRUBIN,TOTAL 0.4 mg/dL (0.2-1.0); CREATININE 0.64 mg/dL (0.7-1.3); TOTAL PROTEIN 6.2 g/dL (6.4-8.2)
[2020-05-15] MEDS: LORazepam 1MG TABLET PO SCH ×4 (05:29→21:00)
[2020-05-15] MEDS: morphine SULFATE 10 MG/ML, 1ML IVPush PRN (05:30)
[2020-05-15 07:05] VITALS: BP 118/63
[2020-05-15] MEDS: methylPREDNISolone SOD SUCC 125 MG/2 ML IVPush SCH ×2 (09:00→20:59)
[2020-05-15] MEDS: TRIAMCINOLONE CRM 0.5%, 15GM TP SCH ×3 (09:00→21:00)
[2020-05-15] MEDS: AMPICILLIN/SULBACTAM 3 GM in SODIUM CHLORIDE 0.9% 100 ML IV SCH ×2 (09:00→20:59)
[2020-05-15] MEDS: FAMOTIDINE 20 MG TABLET PO SCH (09:58)
[2020-05-15] MEDS: MULTIVITAMIN 1 TABLET PO SCH (09:58)
[2020-05-15] MEDS: FOLIC ACID 1 MG TABLET PO SCH (09:58)
[2020-05-15] MEDS: THIAMINE 100MG TABLET PO SCH (09:58)
[2020-05-15] MEDS: INSULIN LISPRO 100 UNITS/ML, PEN SQ-INSULIN SCH ×3 (11:00→21:13)
[2020-05-15 12:24] VITALS: BP 109/72
[2020-05-15] MEDS ORDERED: LORazepam 2 MG/ML, 1ML IV PRN ×3 (15:00)
[2020-05-15 18:55] VITALS: BP 118/65
[2020-05-15] MEDS: LORazepam 2 MG/ML, 1ML IV PRN (21:58)
[2020-05-16 00:35] VITALS: BP 111/70
[2020-05-16] MEDS: LORazepam 2 MG/ML, 1ML IV PRN ×3 (02:35→15:10)
[2020-05-16] MEDS: SODIUM CHLORIDE 0.9% 1,000 ML IV SCH ×2 (02:35→17:29)
[2020-05-16 05:54] LABS: MEAN CORPUSCULAR HEMOGLOBIN 34.6 pg (27.5-34.5); MEAN CORPUSCULAR HGB CONC 33.9 g/dL (33.2-36.2); MEAN PLATELET VOLUME 7.4 fL (7.4-10.4); PLATELET COUNT 173 x10^3/uL (130-400); RED BLOOD COUNT 3.54 x10^6/uL (4.38-5.82); RED CELL DISTRIBUTION WIDTH 15.9 % (9.4-14.8)
[2020-05-16] MEDS: LORazepam 1MG TABLET PO SCH ×4 (06:00→20:59)
[2020-05-16 06:03] LABS: ALBUMIN 2.4 g/dL (3.4-5.0); ANION GAP 6 mmol/L (5-15); CALCIUM 8.2 mg/dL (8.5-10.1); CHLORIDE 110 mmol/L (98-107)
[2020-05-16 06:10] LABS: ALANINE AMINOTRANSFERASE 24 U/L (12-78); ALKALINE PHOSPHATASE 44 U/L (45-117); BILIRUBIN,TOTAL 0.3 mg/dL (0.2-1.0); CREATININE 0.78 mg/dL (0.7-1.3); TOTAL PROTEIN 5.8 g/dL (6.4-8.2)
[2020-05-16 06:47] LABS: MD YES
[2020-05-16 06:50] LABS: LYMPH#(MANUAL) 0.69 x10^3/uL (1-3.4); LYMPHS% (MANUAL) 13 % (22-44); MONOS#(MANUAL) 0.11 x10^3/uL (0.3-2.7); MONOS% (MANUAL) 2 % (2-9); SEG#(MANUAL) 4.51 x10^3/uL (1.8-6.8); SEGS% (MANUAL) 85 % (42-75)
[2020-05-16 06:51] LABS: <PLATELET ESTIMATE> ADEQUATE; <PLT MORPHOLOGY> NORMAL PLT MORPH; ANISOCYTOSIS 1+
[2020-05-16 06:59] VITALS: BP 139/81
[2020-05-16] MEDS: INSULIN LISPRO 100 UNITS/ML, PEN SQ-INSULIN SCH ×4 (08:21→21:00)
[2020-05-16] MEDS: FOLIC ACID 1 MG TABLET PO SCH (08:23)
[2020-05-16] MEDS: THIAMINE 100MG TABLET PO SCH (08:23)
[2020-05-16] MEDS: MULTIVITAMIN 1 TABLET PO SCH (08:23)
[2020-05-16] MEDS: AMPICILLIN/SULBACTAM 3 GM in SODIUM CHLORIDE 0.9% 100 ML IV SCH ×2 (08:23→21:00)
[2020-05-16] MEDS: methylPREDNISolone SOD SUCC 125 MG/2 ML IVPush SCH ×2 (08:30→20:59)
[2020-05-16] MEDS: TRIAMCINOLONE CRM 0.5%, 15GM TP SCH ×3 (08:37→21:12)
[2020-05-16 13:37] VITALS: BP_SYST 116; BP_SYST 142; BP_DIAS 73; BP_DIAS 80
[2020-05-16 19:26] VITALS: BP 131/77
[2020-05-17] VITALS (12 sets, daily range): BP systolic 108–159; BP diastolic 77–96
[2020-05-17] MEDS: LORazepam 1MG TABLET PO SCH ×3 (05:44→20:10)
[2020-05-17] MEDS: methylPREDNISolone SOD SUCC 125 MG/2 ML IVPush SCH ×3 (05:45→21:26)
[2020-05-17] MEDS: SODIUM CHLORIDE 0.9% 1,000 ML IV SCH ×2 (05:45→20:10)
[2020-05-17] MEDS: AMPICILLIN/SULBACTAM 3 GM in SODIUM CHLORIDE 0.9% 100 ML IV SCH ×2 (08:47→21:26)
[2020-05-17] MEDS: THIAMINE 100MG TABLET PO SCH (08:48)
[2020-05-17] MEDS: FOLIC ACID 1 MG TABLET PO SCH (08:48)
[2020-05-17] MEDS: TRIAMCINOLONE CRM 0.5%, 15GM TP SCH ×3 (08:48→21:28)
[2020-05-17] MEDS: MULTIVITAMIN 1 TABLET PO SCH (08:48)
[2020-05-17] MEDS: INSULIN LISPRO 100 UNITS/ML, PEN SQ-INSULIN SCH ×4 (08:51→21:27)
--- NOTE | 2020-05-17 20:02 | NUR ---
ANUPAM GUTIERREZ - Fall Risk Medications present and NOT receiving anticoagulants. Signed: 05/17/20 at 2003 by Karri ROQUE
[2020-05-17] MEDS: LORazepam 2 MG/ML, 1ML IV PRN (21:26)
[2020-05-18 02:57] VITALS: BP 151/95
[2020-05-18] MEDS: methylPREDNISolone SOD SUCC 125 MG/2 ML IVPush SCH (05:34)
[2020-05-18 05:52] LABS: BASOPHILS % (AUTO) 0 % (0-1); EOSINOPHILS % (AUTO) 0 % (1-7); LYMPHOCYTES % (AUTO) 8 % (22-44); MEAN CORPUSCULAR HEMOGLOBIN 34.3 pg (27.5-34.5); MEAN CORPUSCULAR HGB CONC 33.7 g/dL (33.2-36.2); MEAN PLATELET VOLUME 7.3 fL (7.4-10.4); MONOCYTES % (AUTO) 10 % (2-9); NEUTROPHILS % (AUTO) 82 % (42-75); PLATELET COUNT 173 x10^3/uL (130-400); RED BLOOD COUNT 3.76 x10^6/uL (4.38-5.82); RED CELL DISTRIBUTION WIDTH 15.3 % (9.4-14.8)
[2020-05-18 06:02] LABS: MD NO
[2020-05-18 06:04] LABS: ANION GAP 4 mmol/L (5-15); CALCIUM 8.1 mg/dL (8.5-10.1); CHLORIDE 110 mmol/L (98-107); CREATININE 0.79 mg/dL (0.7-1.3)
[2020-05-18 07:02] VITALS: BP 138/87
[2020-05-18] MEDS: INSULIN LISPRO 100 UNITS/ML, PEN SQ-INSULIN SCH ×2 (07:31→11:00)
[2020-05-18] MEDS: FOLIC ACID 1 MG TABLET PO SCH (09:39)
[2020-05-18] MEDS: THIAMINE 100MG TABLET PO SCH (09:39)
[2020-05-18] MEDS: LORazepam 1MG TABLET PO SCH (09:39)
[2020-05-18] MEDS: MULTIVITAMIN 1 TABLET PO SCH (09:39)
[2020-05-18] MEDS: SODIUM CHLORIDE 0.9% 1,000 ML IV SCH (09:40)
[2020-05-18] MEDS: TRIAMCINOLONE CRM 0.5%, 15GM TP SCH (09:40)
[2020-05-18] MEDS: AMPICILLIN/SULBACTAM 3 GM in SODIUM CHLORIDE 0.9% 100 ML IV SCH (09:40)
[2020-05-18 12:37] VITALS: BP 127/80
[2020-05-18] MEDS ORDERED: TRIA15CR53 TP (15:58)
[2020-05-18] MEDS ORDERED: FOLI1TAB32 PO (15:58)
[2020-05-18] MEDS ORDERED: AMOX1TAB64 PO (15:58)
[2020-05-18] MEDS ORDERED: THIA100T67 PO (15:58)
[2020-05-18] MEDS ORDERED: PRED10TA PO (15:58)
[2020-05-18] MEDS ORDERED: methylPREDNISolone SOD SUCC 125 MG/2 ML IVPush SCH (21:00)
== END 2020-05-18 16:10 | disposition left against medical advice (07) | DRG 596 ==
LOC: ED 18:34 → EDIP 21:21 → 3N 22:09
PROVIDERS: ADMIT Internal Medicine; ATTEND Internal Medicine
DX: L40.0 Psoriasis vulgaris (principal); L08.9 Local infection of the skin and subcutaneous tissue, unspecified; T38.0X5A Adverse effect of glucocorticoids and synthetic analogues, initial encounter; B19.20 Unspecified viral hepatitis C without hepatic coma; K21.9 Gastro-esophageal reflux disease without esophagitis; R73.9 Hyperglycemia, unspecified; F10.20 Alcohol dependence, uncomplicated; Y90.9 Presence of alcohol in blood, level not specified; R74.8 Abnormal levels of other serum enzymes; E87.6 Hypokalemia; R74.01 Elevation of levels of liver transaminase levels; R21 Rash and other nonspecific skin eruption; Z53.29 Procedure and treatment not carried out because of patient's decision for other reasons; Z87.891 Personal history of nicotine dependence; Z90.49 Acquired absence of other specified parts of digestive tract; Z95.0 Presence of cardiac pacemaker; Y92.89 Other specified places as the place of occurrence of the external cause
CPT/HCPCS: 36415; 76700; 80048; 80053; 80307; 80320; 82140; 82962; 83605; 83735; 84100; 84145; 84439; 84443; 85025; 85651; 86140; 87040; 88305; 90686; 96374; 96375; 96376; 99285; G0378; J0295; J1650; J2405; J3411; J3475; J3480; G0480; J1200; J1815; J2060; J2270; J2930; J7030